=== PATIENT | male | born 1965 | race Caucasian/White ===

== ENCOUNTER 2018-11-05 20:12 | Observation (INO) ==
[2018-11-05] MEDS ORDERED: Isovue-370 500 ML BOTTLE IVP ONE (20:47)
[2018-11-05 20:50] LABS: Mean Corpuscular Volume 93.9 fL (83.0-100.0)
[2018-11-05 20:51] LABS: Basophils % 0.8 %; Eosinophils # 0.1 K/mcL (0.0-0.6); Hematocrit 38.8 % (37.5-50.1); Hemoglobin 12.7 g/dL (12.9-16.9); Immature Granulocytes % 0.5 % (0-4); Immature Platelets 4.4 % (1.1-6.1); Lymphocytes # 1.6 K/mcL (0.6-4.6); Lymphocytes % 40.2 %; Mean Corpuscular HGB Conc 32.7 g/dL (31.6-35.5); Mean Corpuscular Hemoglobin 30.8 pg (28.0-33.3); Mean Platelet Volume 11.3 fL (9.4-12.4); Monocytes # 0.3 K/mcL (0.0-1.3); Monocytes % 6.9 %; Neutrophils # 1.9 K/mcL (1.6-8.9); Red Blood Count 4.13 M/mcL (4.19-5.50); Red Cell Distribution Width 14.6 % (11.5-14.5); Segmented Neutrophils % 49.6 %; White Blood Count 3.9 K/mcL (4.3-11.1)
[2018-11-05 20:58] LABS: Platelet Count 80 K/mcL (140-400)
[2018-11-05 21:14] LABS: BUN/Creatinine Ratio 19 (6-26); Blood Urea Nitrogen 20 mg/dL (6-20); Calcium 8.8 mg/dL (8.6-10.3); Carbon Dioxide 26 mEq/L (23-29); Chloride 107 mEq/L (98-107); Glucose 130 mg/dL (70-105); Osmolality,Calculated 294 (280-300); Sodium 140 mEq/L (136-145); Troponin I < 0.03 ng/mL (< 0.04); eGFR For African Americans > 60 (> 60); eGFR For Non-African Americans > 60 (> 60)
--- NOTE | 2018-11-05 23:14 | Emergency Department Note ---
Disposition Clinical Impression: Paresthesia of arm, Facial paresthesia, Back pain Disposition: Admitted As Inpatient Condition: Fair Referrals: Zachary Levine MD [Primary Care Provider] - Forms: ED Satisfaction Letter Time of Disposition: 23:36 General Adult HPI - General Chief complaint: ED Neuro Symptoms/Deficit Stated complaint: JORGE ARMS NUMB/FACIAL NUMBNESS/BACK Time Seen by Provider: 11/05/18 20:21 Source: patient Limitations: no limitations Nursing Notes Reviewed: Yes Vital Signs Reviewed: Yes - History of Present Illness HPI Narrative: Patient presented to the emergency department with chief complaint of discomfort/numbness across his chest with numbness into both of his arms. He had also been having some back pain along with this. The patient states that he had a little bit of a headache 2 days ago which seemingly has gone away but then since 10:00 yesterday while he was sitting on a couch he started have bilateral arm numbness sensation and facial numbness sensation he states it felt like he was wearing a mask over the center of his face and all felt numb with in the center of this mass. The patient states her was no unilateral symptoms he states he has had this intermittently now for the last 2 days and seemingly increasing in frequency he states that it seems to last anywhere from 40 minutes to a couple of hours and seems to go away he cannot associated with anything but states it is now present and he was having some pain in his back now he has chronic back pain in his lumbar spine but states that this discomfort was across the parascapular region he states he had this odd sensation, and between his shoulder blades that he cannot describe. He denies actual chest pain he denies palpitations he denies shortness of breath he states however that he has felt very fatigued which is unusual for him. He has had no energy. He states currently does not have a headache he has had no speech difficulty no vision changes. He states that the entire center of his face feels numb. There is no unilateral symptoms at all. He states that he has some chronic low back pain which is unchanged no leg numbness or weakness no bowel or bladder incontinence no fevers no chills no urinary changes. He states that this has been present more throughout the day and the central face numbness and bilateral arm numbness has seemingly worse and he states that he does not really feel weak and was able to move his arms, states it is more of a numbness sensation that it is a true weakness but states that he globally felt like he had less energy than usual. He is a diabetic has a history of hypertension no history of coronary artery disease or stroke. Pain Scale: 0 - Related Data Home Medications Medication Instructions Recorded Confirmed Furosemide [Lasix] 20 mg PO DAILY PRN 01/24/17 11/05/18 Losartan Potassium [Cozaar] 50 mg PO DAILY 01/24/17 11/05/18 Metformin HCl [Glucophage] 1,000 mg PO BID 01/24/17 11/05/18 Potassium Chloride 20 meq PO DAILY PRN 01/24/17 11/05/18 Pravastatin Sodium [Pravachol] 20 mg PO HS 01/24/17 11/05/18 Insulin Glargine,Hum.rec.anlog 66 unit SQ QAM 05/02/18 11/05/18 [Basaglar Kwikpen U-100] Dulaglutide [Trulicity] 1.5 mg SQ SA 11/05/18 11/05/18 Gabapentin [Neurontin] 300 mg PO TID PRN 11/05/18 11/05/18 Glimepiride [Amaryl] 4 mg PO BID 11/05/18 11/05/18 Pioglitazone [Actos] 45 mg PO DAILY 11/05/18 11/05/18 Allergies Allergy/AdvReac Type Severity Reaction Status Date / Time canagliflozin [From Invokana] Allergy Back Pain Verified 11/05/18 20:27 All systems ED: reviewed and negative except as stated. Review of Systems: As Per HPI Past Medical History - Past Medical History Medical history: Reports: diabetes, hyperlipidemia, hypertension Surgical history: Reports: other Psychiatric history: Reports: no psych history - Social History Smoking Status: Never smoker Smokeless Tobacco Status: Yes Alcohol use: Reports: occasionally Drug use: Reports: none Physical Exam - General Limitations: no limitations General appearance: alert - Head Head exam: atraumatic, normocephalic - Eye Eye exam: Present: normal appearance, PERRL - ENT ENT exam: normal exam, normal oropharynx - Neck Neck exam: Present: normal inspection, full ROM. Absent: thyromegaly - Chest Chest inspection: Present: normal inspection, symmetric chest wall rise - Respiratory Respiratory exam: Present: normal lung sounds bilaterally. Absent: respiratory distress - Cardiovascular Cardiovascular exam: Present: regular rate, normal rhythm - Abdominal Exam Abdominal exam: Present: soft, Non-Tender, other (Abdomen is obese, no obvious palpable or pulsatile mass no tenderness no obvious organomegaly.) - Extremities Exam Extremities exam: Present: normal inspection, full ROM, normal capillary refill, pedal edema (There is trace to 1+ bilateral lower extremity edema no unilateral swelling palpable cord calf tenderness Homans sign or clinical evidence of DVT). Absent: tenderness - Expanded Lower Extremity Exam Neurovascular/Tendon exam: Present: normal capillary refill. Absent: pulse deficit - Back Exam Back exam: Present: normal inspection, full ROM. Absent: tenderness, CVA tenderness (R), CVA tenderness (L) - Neurological Exam Neurological exam: Present: alert, oriented X3, CN II-XII intact, reflexes normal, other (No pass pointing no pronator drift normal speech normal pupils no focal neurologic findings.). Absent: motor sensory deficit - Psychiatric Psychiatric exam: Present: normal affect - Skin Skin exam: Present: warm, dry, intact, normal color. Absent: rash Course Vital Signs Temperature 98.2 F 11/05/18 20:17 Pulse Rate 76 11/05/18 20:17 Respiratory Rate 24 11/05/18 20:17 Blood Pressure 160/79 11/05/18 20:17 O2 Sat by Pulse Oximetry 100 11/05/18 20:17 Temperature 98.2 F 11/05/18 20:17 Pulse Rate 86 11/05/18 23:01 Respiratory Rate 20 11/05/18 23:01 Blood Pressure 144/76 11/05/18 23:01 O2 Sat by Pulse Oximetry 97 11/05/18 23:01 Oxygen Delivery Oxygen Delivery Room Air Medical Decision Making - [facility] Narrative Medical decision making narrative: Patient had an IV placed, was placed on the monitor. Head CT showed no acute findings. Cervical spine CT and thoracic spine CTs were ordered as the patient reports that he has history of chronic low back problems with disc disease, and has had radicular symptoms with that previously and was wondering if this was related that he did have some back pain with symptoms in the both of his arms, therefore imaging was ordered, CT of the cervical and thoracic spine showed no evidence of significant abnormality, some mild degenerative changes of a herniated discs or other findings as interpreted by radiology secondary to his pain into his back with pain across his shoulder blades and numbness into his arms, a CT dissection protocol was also ordered to rule out vascular cause of his symptoms. CT dissection protocol showed no acute findings as interpreted by radiology. EKG was normal sinus rhythm with no evidence of acute ischemic dysrhythmia or hyperkalemia as interpreted by myself. CBC basic metabolic profile cardiac enzymes magnesium were all within acceptable limits apart from a slightly low platelet count 80,000. Is unclear as to the exact etiology of this patient's symptoms however he is morbidly obese has a history of hypertension diabetes, with arm tingling and facial tingling, and discomfort in his back this could represent a cardiac equivalent, does not seem to fit any stroke pathology or pattern, with a normal head CT, has no actual focal neurologic findings, and am still concerned about a potential cardiac equivalent and patient was admitted to the hospital for further evaluation and management. - Lab Data Result diagrams: 11/05/18 20:30 11/05/18 20:30 Lab Results 11/05/18 11/05/18 Range/Units 20:30 20:30 WBC 3.9 L (4.3-11.1) K/mcL RBC 4.13 L (4.19-5.50) M/mcL Hgb 12.7 L (12.9-16.9) g/dL Hct 38.8 (37.5-50.1) % MCV 93.9 (83.0-100.0) fL MCH 30.8 (28.0-33.3) pg MCHC 32.7 (31.6-35.5) g/dL RDW 14.6 H (11.5-14.5) % Plt Count 80 L (140-400) K/mcL MPV 11.3 (9.4-12.4) fL Immature Gran % 0.5 (0-4) % Seg Neutrophils % 49.6 % Lymphocytes % 40.2 % Monocytes % 6.9 % Eosinophils % 2.0 % Basophils % 0.8 % Neutrophils # 1.9 (1.6-8.9) K/mcL Lymphocytes # 1.6 (0.6-4.6) K/mcL Monocytes # 0.3 (0.0-1.3) K/mcL Eosinophils # 0.1 (0.0-0.6) K/mcL Basophils # 0.0 (0.0-0.2) K/mcL Immature Plt Fraction 4.4 (1.1-6.1) % Sodium 140 (136-145) mEq/L Potassium 4.0 (3.5-5.1) mEq/L Chloride 107 (98-107) mEq/L Carbon Dioxide 26 (23-29) mEq/L BUN 20 (6-20) mg/dL Creatinine 1.07 (0.70-1.30) mg/dL Est GFR ( Amer) > 60 (> 60) Est GFR (Non-Af Amer) > 60 (> 60) BUN/Creatinine Ratio 19 (6-26) Glucose 130 H (70-105) mg/dL Calculated Osmolality 294 (280-300) Calcium 8.8 (8.6-10.3) mg/dL Magnesium 2.0 (1.6-2.6) mg/dL Troponin I < 0.03 (< 0.04) ng/mL
[2018-11-05] MEDS ORDERED: *HR* HYDROcodone/Acet 5/325 mg TABLET PO ONE (23:30)
[2018-11-05] MEDS ORDERED: Aspirin 325 MG TABLET PO ONE (23:37)
[2018-11-06] MEDS ORDERED: Naloxone 0.4 MG/ML INJ IVP PRN (01:19)
--- NOTE | 2018-11-06 01:19 | Internal Med History&Physical ---
<Judson Paniagua - Last Filed: 11/06/18 07:40> Date of Encounter: 11/06/18 Time of Encounter: 00:17 Internal Medicine - H&P: HPI History of present illness: Mr. Molina is a 53 year old male with a PMH of DM, HLD, and HTN who presented to [facility] ED on 11/05/18 with chief complaint of chest discomfort/numbness across his chest with numbness going into both arms. He reported associated back pain. Also described associated facial numbness that he described as "wearing a tight mask over the center of his face," and he felt numb in the center of this area. Denied any unilateral symptoms. On arrival, vital signs were significant for an elevated respiratory rate of 24, BP 160/79. All other vitals were WNL. Labs showed a low white count 3.9, hemoglobin 12.7, and glucose 130. CT scan of the head and neck was unremarkable. CT dissection was performed, which showed cirrhosis with portal hypertension, small volume ascites, and mesenteric edema in the abdomen and pelvis. CT scan of the thoracic spine showed mild, multilevel degenerative changes in the mid and lower thoracic spine. He was given a one-time loading dose of ASA, 325. During my assessment, patient's symptoms had completely resolved. He denied having any numbness, tingling, chest tightness, or chest numbness when I saw him. He also denied headache, visual disturbances, weakness, difficulty speaking, or lightheadedness. On neurologic exam, patient has 5/5 strength in all 4 extremities. His range of motion appears intact, although he has some difficulty lifting his hands above his head due to chronic shoulder issues. Patellar and brachioradialis reflexes are 2/4 bilaterally. He states that the symptoms have never happened to him before. He says that they were associated with a unilateral headache on the right side of his head and face. He denies a history of migraines. He does have a history of diabetes, and takes gabapentin. He denies having any chronic numbness or tingling. Will order TSH, vitamin B12, folate, and thiamine levels, we will trend troponin levels 2, and will consult neurology for further recommendations. Medical history: DM, HLD, and HTN Family History: CAD Past Med Surg Social Fam HX - Past Medical History Medical history: diabetes, hyperlipidemia, hypertension Additional medical history: obese,headaches,neuropathy,varicosities in leg,sciatica,carpal tunnel, DDD, LIVER PROBLEMS., Psychiatric history: no psych history - Past Surgical History Surgical History: other Additional surgical history: pilonidal cyst excision - Social History Smoking Status: Never smoker Smokeless Tobacco Status: Yes Alcohol use: occasionally Drug use: none - Family History Mother Living Status: Age at : 52 Cause of : heart failure Hx Family Cardiac Disorders: Yes Father Living Status: Age at : 56 Cause of : [place] Hx Family Cardiac Disorders: Yes Internal Medicine - H&P: Meds Furosemide [Lasix] 20 mg PO DAILY PRN 01/24/17 [History] Losartan Potassium [Cozaar] 50 mg PO DAILY 01/24/17 [History] Metformin HCl [Glucophage] 1,000 mg PO BID 01/24/17 [History] Potassium Chloride 20 meq PO DAILY PRN 01/24/17 [History] Pravastatin Sodium [Pravachol] 20 mg PO HS 01/24/17 [History] Insulin Glargine,Hum.rec.anlog [Basaglar Kwikpen U-100] 66 unit SQ QAM 05/02/18 [History] Dulaglutide [Trulicity] 1.5 mg SQ SA 11/05/18 [History] Gabapentin [Neurontin] 300 mg PO TID PRN 11/05/18 [History] Glimepiride [Amaryl] 4 mg PO BID 11/05/18 [History] Pioglitazone [Actos] 45 mg PO DAILY 11/05/18 [History] Aspirin Enteric Coated [Aspirin EC] 81 mg PO DAILY #30 tablet. 11/06/18 [Rx] Allergy/AdvReac Type Severity Reaction Status Date / Time canagliflozin [From Invokana] Allergy Back Pain Verified 11/05/18 20:27 All Systems PM: A 10-system review of systems was performed and is negative for pertinent findings except as documented above in the HPI. - Constitutional Constitutional: no weakness - EENT Eyes: no change in vision, no loss of vision - Cardiovascular Cardiovascular ROS IM: no chest pain - Musculoskeletal Musculoskeletal ROS IM: numbness, tingling - Constitutional Vitals: Temp Pulse Resp BP Pulse Ox 97.5 F L 66 16 166/87 98 11/06/18 00:30 11/06/18 00:30 11/06/18 00:30 11/06/18 00:30 11/06/18 00:30 Exam: General: Conversant, no acute distress Head: atraumatic, normocephalic Eye: PERRL, EOMI, conjuntiva pink, sclera anicteric Neck: Supple, trachea midline; No lymphadenopathy Respiratory: CTAB. No accessory muscle use, wheezes, rales, or rhonchi Cardiovascular: RRR, +S1, +S2; no murmurs, rubs, gallops Abdomen: Soft, nontender Extremities: +1 pitting edema extending to 1 inch below the knees bilaterally Neurological: CN II-XII intact; 2/4 reflexes (patellar, brachioradialis); strength 5/5 in upper and lower extremities Psychiatric: Normal affect, normal mood Skin: Dry, intact Internal Med - H&P Results - Labs CBC & Chem 7: 11/06/18 05:27 11/06/18 05:27 Labs: Short CBC 11/05/18 Range/Units 20:30 WBC 3.9 L (4.3-11.1) K/mcL Hgb 12.7 L (12.9-16.9) g/dL Hct 38.8 (37.5-50.1) % Plt Count 80 L (140-400) K/mcL Neutrophils # 1.9 (1.6-8.9) K/mcL BMP 11/05/18 20:30 Sodium 140 Potassium 4.0 Chloride 107 Carbon Dioxide 26 BUN 20 Creatinine 1.07 Glucose 130 H Calcium 8.8 Cardiac Enzymes 11/05/18 Range/Units 20:30 Troponin I < 0.03 (< 0.04) ng/mL - Impressions ITS Impressions Cervical Spine CT 11/05/18 20:39 IMPRESSION: No acute abnormality of the cervical spine. D/ / Jose Wheatley / Jose Wheatley Interpreting Provider: Jose Wheatley Head CT 11/05/18 20:39 IMPRESSION: No acute intracranial abnormality. D/ / Jose Wheatley / Jose Wheatley Interpreting Provider: Jose Wheatley Dissection 11/05/18 20:47 IMPRESSION: No evidence of thoracic or abdominal aortic dissection. No acute abnormality detected within the chest. Cirrhosis with portal hypertension. Small volume ascites and mesenteric edema noted within the abdomen and pelvis. D/ / Alexi Dang MD / Alexi Dang MD Interpreting Provider: Alexi Dang MD Thoracic Spine CT 11/05/18 20:47 IMPRESSION: Mild multilevel degenerative changes in the mid and lower thoracic spine. No bony canal or neural foraminal stenosis. No acute osseous abnormality. D/ / Shahrzad Early MD / Shahrzad Early MD Interpreting Provider: Shahrzad Early MD - Assessment and Plan (1) Chest discomfort Status: Acute Assessment and plan: Assessment - Initially presented complaining of chest discomfort/numbness going across into both arms - Denied associated pain, diaphoresis, palpitations, nausea, or vomiting; no prior episodes - EKG on arrival was unremarkable; initial troponin was negative - During my exam, patient had +1 edema in the lower extremities bilaterally; states that it has been many years since he got an echocardiogram - He says he does not believe he has CHF, but he does take lasix at home, which he says he only takes intermittently - No previous ischemic workup is on file Plan - Will continue to trend troponin 2 - Will order echocardiogram to r/o worsening systolic dysfunction - If patient has rising troponins or continued chest discomfort, cardiology consult may be warranted for inpatient stress testing (2) Paresthesia of arm Status: Acute Assessment and plan: Assessment - Initially presented with numbness across chest going down into both arms, as well as an area across his face that he described as "wearing a tight mask" - He denied any unilateral symptoms or focal weakness; patient has 5 out of 5 strength testing in all 4 extremities and 2/4 reflexes bilaterally on physical e xam - Etiology is unknown at this time; per review of outpatient records, patient does have a history of diabetic neuropathy - He also has a documented history of spinal stenosis and degenerative disc disease - Suspicion for CVA is low at this time; no focal deficits are noted, no facial drooping, no slurred speech, cranial nerves II-XII intact - CT scan of the head, neck, chest, and thoracic spine were all unremarkable Plan - Will obtain TSH to rule out hypothyroidism - Will order thiamine, vitamin B12, folate levels to rule out deficiency - We will consult neurology for further recommendations (3) Leukopenia Status: Acute Assessment and plan: - Labs demonstrated a low white count at 3.9 - Etiology is unknown at this time - Patient appears nontoxic; no infection source is suspected at this time - Repeat a.m. labs Qualifiers: Qualified Code(s): D72.819 - Decreased white blood cell count, unspecified (4) Hyperlipidemia Status: Acute Assessment and plan: - Continue statin Qualifiers: Qualified Code(s): E78.5 - Hyperlipidemia, unspecified (5) Hypertension Status: Acute Assessment and plan: - Continue home medications Qualifiers: Qualified Code(s): I10 - Essential (primary) hypertension (6) Diabetes Status: Acute Assessment and plan: - SSI Qualifiers: Qualified Code(s): E11.9 - Type 2 diabetes mellitus without complications (7) DVT prophylaxis Status: Acute Assessment and plan: - Heparin SQ - Time Spent With Patient Total time spent is greater than 50% in coordination of care (as documented) at patient's floor/unit and/or counseling patient: <Gabrielle Manuel Z - Last Filed: 11/07/18 16:16> Date of Encounter: 11/06/18 Internal Medicine - H&P: HPI History of present illness: Mr. Molina is a 53 year old male All Systems PM: A 10-system review of systems was performed and is negative for pertinent findings except as documented above in the HPI. - Constitutional Vitals: Temp Pulse Resp BP Pulse Ox 97.5 F L 55 16 154/87 99 11/06/18 08:16 11/06/18 08:16 11/06/18 08:16 11/06/18 08:16 11/06/18 08:16 Internal Med - H&P Results - Labs CBC & Chem 7: 11/06/18 05:27 11/06/18 05:27 - Impressions ITS Impressions Cervical Spine CT 11/05/18 20:39 IMPRESSION: No acute abnormality of the cervical spine. D/ / Jose Wheatley / Jose Wheatley Interpreting Provider: Jose Wheatley Head CT 11/05/18 20:39 IMPRESSION: No acute intracranial abnormality. D/ / Jose Wheatley / Jose Wheatley Interpreting Provider: Jose Wheatley Dissection 11/05/18 20:47 IMPRESSION: No evidence of thoracic or abdominal aortic dissection. No acute abnormality detected within the chest. Cirrhosis with portal hypertension. Small volume ascites and mesenteric edema noted within the abdomen and pelvis. D/ / Alexi Dang MD / Alexi Dang MD Interpreting Provider: Alexi Dang MD Thoracic Spine CT 11/05/18 20:47 IMPRESSION: Mild multilevel degenerative changes in the mid and lower thoracic spine. No bony canal or neural foraminal stenosis. No acute osseous abnormality. D/ / Shahrzad Early MD / Shahrzad Early MD Interpreting Provider: Shahrzad Early MD Echocardiogram 11/06/18 04:55 Impressions: LVEF 60-65%. Definity echo contrast was used. Normal left ventricular diastolic function. Normal right ventricular structure and function. Mild mitral regurgitation. Mild tricuspid regurgitation. Borderline pulmonary hypertension. Left Ventricular Wall Motion: Rest Echo Findings All wall segments showed normal motion. Findings: Study Quality * Technically sub-optimal due to body habitus. ECG Findings * Normal sinus rhythm. Left Ventricle * LVEF 60-65%. * Normal LV chamber size, wall thickness and function. * Definity echo contrast was used. * Normal left ventricular diastolic function. Right Ventricle * Normal right ventricular structure and function. Left Atrium * Normal left atrial size. Right Atrium * Normal right atrial size. Aortic Valve * No aortic regurgitation. * Aortic valve not well visualized. * No aortic stenosis. Mitral Valve * No mitral stenosis. * Mitral valve not well visualized. * Mild mitral regurgitation. Tricuspid Valve * Tricuspid valve not well visualized. * Mild tricuspid regurgitation. * Estimated RA pressure is 3 mmHg. * Estimated RVSP is 34 mmHg. * Borderline pulmonary hypertension. Pulmonic Valve * Pulmonic valve is not well visualized. * No pulmonic stenosis. * No pulmonic regurgitation. Pulmonary Artery * Pulmonary artery not well visualized. Aorta * Normally sized aortic root. Pericardium * There is no pericardial effusion present. Interatrial Septum * No evidence of PFO by color Doppler. IVC * The IVC is not dilated. - Assessment and Plan (1) Paresthesia of arm Status: Acute (2) Facial paresthesia Status: Acute (3) Back pain Status: Acute Qualifiers: Back pain location: back pain in unspecified location Chronicity: acute Back pain laterality: midline Qualified Code(s): M54.9 - Dorsalgia, unspecified (4) Hyperlipidemia Status: Acute Qualifiers: Qualified Code(s): E78.5 - Hyperlipidemia, unspecified (5) Hypertension Status: Acute Qualifiers: Hypertension type: essential hypertension Qualified Code(s): I10 - Essential (primary) hypertension (6) Diabetes Status: Acute Qualifiers: Diabetes mellitus type: type 2 Diabetes mellitus shelter insulin use: without buttermaker continuous churn use Diabetes mellitus complication status: without complication Qualified Code(s): E11.9 - Type 2 diabetes mellitus without complications - Time Spent With Patient Total time spent is greater than 50% in coordination of care (as documented) at patient's floor/unit and/or counseling patient: - Attending Attestation The patient was seen on 11/06 I performed a history and physical examination of the patient and discussed his management with the resident. I reviewed the residents note and agree with the documented findings and plan of care.
[2018-11-06] MEDS ORDERED: Furosemide 20 MG TABLET PO PRN (04:46)
[2018-11-06] MEDS ORDERED: Gabapentin 300 MG CAPSULE PO PRN (04:46)
[2018-11-06 05:52] LABS: Immature Granulocytes % 0.4 % (0-4); Mean Platelet Volume 10.9 fL (9.4-12.4); Red Cell Distribution Width 14.5 % (11.5-14.5)
[2018-11-06 05:54] LABS: Basophils % 0.6 %; Eosinophils # 0.1 K/mcL (0.0-0.6); Eosinophils % 2.6 %; Hematocrit 41.2 % (37.5-50.1); Hemoglobin 13.3 g/dL (12.9-16.9); Immature Platelets 4.8 % (1.1-6.1); Lymphocytes # 1.7 K/mcL (0.6-4.6); Lymphocytes % 33.1 %; Mean Corpuscular HGB Conc 32.3 g/dL (31.6-35.5); Mean Corpuscular Hemoglobin 30.4 pg (28.0-33.3); Mean Corpuscular Volume 94.3 fL (83.0-100.0); Monocytes # 0.4 K/mcL (0.0-1.3); Monocytes % 7.3 %; Neutrophils # 2.8 K/mcL (1.6-8.9); Red Blood Count 4.37 M/mcL (4.19-5.50)
[2018-11-06 05:57] LABS: Platelet Count 90 K/mcL (140-400)
[2018-11-06 06:14] LABS: BUN/Creatinine Ratio 22 (6-26); Blood Urea Nitrogen 20 mg/dL (6-20); Calcium 9.2 mg/dL (8.6-10.3); Carbon Dioxide 26 mEq/L (23-29); Chloride 106 mEq/L (98-107); Glucose 74 mg/dL (70-105); Osmolality,Calculated 291 (280-300); Potassium 4.6 mEq/L (3.5-5.1); Sodium 140 mEq/L (136-145); eGFR For African Americans > 60 (> 60); eGFR For Non-African Americans > 60 (> 60)
[2018-11-06 06:31] LABS: Folate 17.7 ng/mL (3.0-16.0)
[2018-11-06] MEDS ORDERED: D5% in Water 1,000 ML IVC PRN (07:35)
[2018-11-06] MEDS ORDERED: *HR* Dextrose 50 % in Water (Syg) 50 ML SYRINGE IVP PRN (07:35)
[2018-11-06] MEDS ORDERED: Dextrose Gel 15 GM/37.5 ML TUBE PO PRN ×2 (07:35)
[2018-11-06 08:18] VITALS: BP 154/87
--- NOTE | 2018-11-06 09:10 | Neurology - Consult Note ---
Date of Encounter: 11/06/18 Time of Encounter: 09:06 Assessment and Plan (1) Paresthesia of arm Status: Acute Neurology has been consulted for evaluation of facial and bilateral arm paresthesias Symptoms were precipitated by a headache after working outside in the heat all day Monday The patient reports first developing paresthesias in the right arm radiating to the right shoulder then radiation to the left shoulder and left arm as well as some mild mid chest discomfort At the time of my assessment this morning the paresthesias persists in the left forearm and left hand. Neurologically there are no focal motor findings and the patient appears to be neurologically intact Given that his sx are bilateral I do not believe his sx to be of a central neurological origin. 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 Molina is a 53 year old male with a PMH of DM, HLD and HTN who presents to [facility] ED with a CC of chest discomfort and paresthesias which he reports he began his right arm and radiated to right shoulder mid chest to left shoulder and down his left arm. 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 Also of note the patient does have a history significant for mild cervical stenosis and degenerative disc disease in the thoracic spine. This time of my assessment the patient reports that his symptoms have resolved except for some mild numbness and tingling in the left forearm and left hand. He denies any further neurological deficits. A CT dissection was performed which showed cirrhosis with portal hypertension and small volume ascites and mesenteric edema in the abdomen and pelvis but otherwise no acute findings. CT of the head was unremarkable. A CT of the cervical spine did not reveal any acute pathology. Again, CT of thoracic spine showed mild multilevel degenerative changes in the mid and lower thoracic spine. B12 and folate were within normal limits. TSH was mildly high at 6.6. Past Med Surg Social Fam HX - Past Medical History Medical history: diabetes, hyperlipidemia, hypertension Additional medical history: obese,headaches,neuropathy,varicosities in leg,sciatica,carpal tunnel, DDD, LIVER PROBLEMS., Psychiatric history: no psych history - Past Surgical History Surgical History: other Additional surgical history: pilonidal cyst excision - Social History Smoking Status: Never smoker Smokeless Tobacco Status: Yes Alcohol use: occasionally Drug use: none - Family History Mother Living Status: Age at : 52 Cause of : heart failure Hx Family Cardiac Disorders: Yes Father Living Status: Age at : 56 Cause of : MA Hx Family Cardiac Disorders: Yes Medications and Allergies Furosemide [Lasix] 20 mg PO DAILY PRN 01/24/17 [History] Losartan Potassium [Cozaar] 50 mg PO DAILY 01/24/17 [History] Metformin HCl [Glucophage] 1,000 mg PO BID 01/24/17 [History] Potassium Chloride 20 meq PO DAILY PRN 01/24/17 [History] Pravastatin Sodium [Pravachol] 20 mg PO HS 01/24/17 [History] Insulin Glargine,Hum.rec.anlog [Basaglar Kwikpen U-100] 66 unit SQ QAM 05/02/18 [History] Dulaglutide [Trulicity] 1.5 mg SQ SA 11/05/18 [History] Gabapentin [Neurontin] 300 mg PO TID PRN 11/05/18 [History] Glimepiride [Amaryl] 4 mg PO BID 11/05/18 [History] Pioglitazone [Actos] 45 mg PO DAILY 11/05/18 [History] Aspirin Enteric Coated [Aspirin EC] 81 mg PO DAILY #30 tablet. 11/06/18 [Rx] Allergy/AdvReac Type Severity Reaction Status Date / Time canagliflozin [From Invokana] Allergy Back Pain Verified 11/05/18 20:27 All Systems: The remainder of the systems were reviewed and are negative Review of Systems: REVIEW OF SYSTEMS GENERAL: Negative for any nausea, vomiting, fevers, chills NEUROLOGIC: Negative for any blurry vision, blind spots, double vision, facial asymmetry, dysphagia, dysarthria, unilateral weakness POSITIVE-B/L ARM PARASTHESIAS WITH RADIATION TO B/L SHOULDERS AND MID CHEST. ALSO REPORTING A HEADACHE HEENT: Negative for any head trauma, neck trauma, neck stiffness, photophobia, p honophobia CARDIAC: Negative for any chest pain, dyspnea MUSCULOSKELETAL: Intermittent loss of strength in b/l arms Physical Examination - Vital Signs Vital Signs: Initial Vital Signs Temp Pulse Resp BP Pulse Ox 98.2 F 76 24 160/79 100 11/05/18 20:17 11/05/18 20:17 11/05/18 20:17 11/05/18 20:17 11/05/18 20:17 - Exam Exam: Examination: General Examination: *CONSTITUTIONAL: Alert and oriented x3, no acute distress *GENERAL APPEARANCE OF PATIENT appears healthy and well groomed *EYES: pupils equal, round, reactive to light and accommodation, conjunctiva clear without masses or ulcerations, fundi normal. *CARDIOVASCULAR: RRR, no peripheral edema, distal temperature normal, dorsalis pedis pulses normal. Refer to vital signs * MUSCULOSKELETAL: *GAIT AND STATION: normal, with normal Romberg testing, no abnormalities such as broad base gait or spasticity *ASSESSMENT OF MUSCLE STRENGTH IN THE UPPER AND LOWER EXTREMITIES bilateral deltoid, bicep, tricep, car shagger strength, hip flexors ,anterior tibialis, dorsoflexion of the foot 5/5 *MUSCLE TONE IN THE UPPER AND LOWER EXTREMITIES normal. No abnormal movements, fasciculations or atrophy identified. Neurological: *ORIENTATION to person, situation, time and place *LANGUAGE AND FUNCTION no significant aphasia or dysarthia was noted. *ATTENTION AND CONCENTRATION are normal *LANGUAGE FUNCTION no significant aphasia or dysarthia was noted. *FUND OF KNOWLEDGE aware of current events, past history, vocabulary *MENTAL attention span and concentration normal. *CN II optic fundi were normal, no papilledema noted. *CN III,IV, PERRLA extraocular eye movements were full, no nystagmus and no ptosis noted. *CN V shows normal sensation and jaw opens symmetrically. *CN VII shows normal facial movement symmetrically, upper and lower bilaterally. *CN VIII shows no significant hearing loss on exam *CN IX-X palate elevated symmetrically *CN XI normal strength in the sternocleidomastoid muscles, symmetrical shoulder shrugging. *CN XII tongue protruded in the midline, with normal strength and movement. *SENSORY EXAMINATION light touch intact *REFLEXES: deep tendon reflexes were normal and symmetrical , grade 2/4 diffusely, no pathological reflexes were noted. *CEREBELLAR TESTING normal finger to nose, heel/knee/mendenhall *PAIN LEVEL 2/10 chronic lumbar spine pain and sciatica with pain radiating to the left leg Results - Laboratory Findings CBC and BMP: 11/06/18 05:27 11/06/18 05:27 Abnormal lab findings: Abnormal lab results WBC 3.9 K/mcL (4.3-11.1) L 11/05/18 20:30 RBC 4.13 M/mcL (4.19-5.50) L 11/05/18 20:30 Hgb 12.7 g/dL (12.9-16.9) L 11/05/18 20:30 RDW 14.6 % (11.5-14.5) H 11/05/18 20:30 Plt Count 90 K/mcL (140-400) L 11/06/18 05:27 Glucose 130 mg/dL (70-105) H 11/05/18 20:30 POC Glucose 153 mg/dL (70-99) H 11/05/18 20:17 Folate 17.7 ng/mL (3.0-16.0) H 11/06/18 05:27 TSH 6.606 mcIU/mL (0.340-5.600) H 11/06/18 05:27 - Diagnostic Findings Additional findings: CT/CT head/brain wo con IMPRESSION: No acute intracranial abnormality. CT/CT cervical spine wo con IMPRESSION: No acute abnormality of the cervical spine. CT/CT thoracic spine wo con IMPRESSION: Mild multilevel degenerative changes in the mid and lower thoracic spine. No bony canal or neural foraminal stenosis. No acute osseous abnormality. CT/CT CTA Dissection Study IMPRESSION: No evidence of thoracic or abdominal aortic dissection. No acute abnormality detected within the chest. Cirrhosis with portal hypertension. Small volume ascites and mesenteric edema noted within the abdomen and pelvis. Consult Discharge Plan - Plan Additional Instructions: Follow-up appointments: If there is not an appointment listed below, please call your physician and schedule a follow-up appointment. If you have congestive heart failure and your symptoms return, make an appointment with your physician. Medication List: Carry an up to date list of medications you are taking at all time. We have given you an updated medication list including any new medications that you have been prescribed. Please provide that list to your primary provider Symptoms: If your condition changes or you experience any of the following symptoms, notify your physician immediately: Unusual or worsening pain, fever, persistent nausea and vomiting, bleeding, increase in swelling (especially in your legs), sudden weight gain, extreme dizziness, chest pain, increased drainage or redness from a wound or incision. Go to the emergency department if you experience a problem with breathing. Weights: If you have a history of swelling or shortness of breath, weigh yourself daily and notify your physician if you have a weight gain of two or more pounds in one day or 5 or more pounds in a week. If you experience any of the warning signs for stroke: Sudden numbness or weakness of the face, arm or leg; especially on one side of the body, sudden confusion, trouble speaking or understanding, sudden trouble seeing in one or both eyes, sudden trouble walking, dizziness, loss of balance or coordination, sudden sever headache with no cause; Call 911 or go to the emergency room. Stroke is a medical emergency. Some risk factors for stroke: Age, cigarette smoking, diabetes, excessive alcohol consumption, family history, high blood pressure, overweight, physical inactivity, prior stroke, heart attack, diagnosis of carotid artery stenosis or other artery disease. If you smoke, STOP: Smoking or tobacco use significantly increases your risk of heart and lung disease. Your chance of disease greatly increases if you continue to smoke. For more information, call the [place] tobacco quit line for smoking cessation 8-338-BGFY-NOW ( ) Referrals: Gurvinder Villeda Jr, MD [Partnered Physician] - (This appointment was web requested. They will monse you with appointment info. ) Zachary Levine MD [Primary Care Provider] - (Please make a follow up appo intment in 1-2 weeks. ) Prescriptions: Aspirin Enteric Coated [Aspirin EC] 81 mg PO DAILY #30 tablet.
[2018-11-06] MEDS ORDERED: Perflutren Lipid Microsphere 1.3 ML in 0.9 % Sodium Chloride 8.7 ML IVP ONE (10:00)
[2018-11-06] MEDS ORDERED: Perflutren Lipid Microsphere 2 ML VIAL ONE (10:02)
--- NOTE | 2018-11-06 10:43 | Electrocardiograph Report ---
[place] [id number] Test Date: 2018-11-05 Pat Name: Pablo Molina Department: [id number] Room: 3B38 Gender: Pastoral Assistant: : [id number] Requested By: Colton Saha Order Number: [id number] Reading MD: Varun Ruth Measurements Intervals Scott Rate: 75 P: -20 IN: 160 QRS: 55 QRSD: 86 T: 51 QT: 389 QTc: 435 Interpretive Statements Sinus rhythm Abnormal R-wave progression, early transition Possible inferior infarct, old Electronically Signed On 11-06-2018 10:41:23 EDT by Varun Ruth
--- NOTE | 2018-11-06 11:46 | Discharge Summary ---
- NOTES TO OUTPATIENT PROVIDER Notes to Outpatient Provider: f/u with PCP in one week. f/u with Spine surgery Dr. Villeda in one week. Orders not resulted at time of discharge: Pending orders 11/06/18 05:27 Vitamin B1 (Thiamine) Whole Bl Routine Date of Encounter: 11/06/18 Time of Encounter: 11:46 - Discharge Diagnosis (1) Paresthesia of arm Priority: Primary Status: Acute (2) Back pain Priority: Primary Status: Acute Qualifiers: Back pain location: back pain in unspecified location Chronicity: acute Back pain laterality: midline Qualified Code(s): M54.9 - Dorsalgia, unspecified (3) Facial paresthesia Priority: Primary Status: Acute (4) Hyperlipidemia Priority: Secondary Status: Acute Qualifiers: Qualified Code(s): E78.5 - Hyperlipidemia, unspecified (5) Hypertension Priority: Secondary Status: Acute Qualifiers: Hypertension type: essential hypertension Qualified Code(s): I10 - Essential (primary) hypertension (6) Diabetes Priority: Secondary Status: Acute Qualifiers: Diabetes mellitus type: type 2 Diabetes mellitus supervisor intermediates insulin use: without supervisor intermediates use Diabetes mellitus complication status: without complication Qualified Code(s): E11.9 - Type 2 diabetes mellitus without complications Hospital course: Mr. Molina is a 53 year old male with a PMH of DM, HLD, DJD, Spinal stenosis, low back pain and HTN pt presented to [facility] ED on 11/05/18 with chief complaint of facial numbness over frontal head and scalp, cap like 2 days ago.. Y/d he did have numbness across his his both shoulders and radiating to both arms. CT scan of the head and neck was unremarkable. CT dissection was performed, which showed cirrhosis with portal hypertension, small volume ascites, and mesenteric edema in the abdomen and pelvis. CT scan of the thoracic spine showed mild, multilevel degenerative changes in the mid and lower thoracic spine. He was admitted in the hospital and placed him on president/gm production & live experiences. Patient stated his symptoms resolved today. 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 I offered him to have MRI of Cervical spine done here, how ever pt refused to stay and wanted to go home and f.u with PCP Dr. Levine as an out pt. I did make a referral to f/u with Spine surgery Dr. Villeda as an out pt. He did have slightly elevated TSH @ 6.6 and Folate @ 17.7. Recommend out pt f/u with PCP and repeat labs in 3-4 weeks again. - Time Spent with Patient Total time spent providing and/or coordinating discharge services: - Discharge Medications Prescriptions: New Aspirin Enteric Coated [Aspirin EC] 81 mg PO DAILY #30 tablet.dr Continued Furosemide [Lasix] 20 mg PO DAILY PRN PRN Reason: Edema Losartan Potassium [Cozaar] 50 mg PO DAILY Metformin HCl [Glucophage] 1,000 mg PO BID Potassium Chloride 20 meq PO DAILY PRN PRN Reason: WITH LASIX Pravastatin Sodium [Pravachol] 20 mg PO HS Insulin Glargine,Hum.rec.anlog [Basaglar Kwikpen U-100] 66 unit SQ QAM Glimepiride [Amaryl] 4 mg PO BID Dulaglutide [Trulicity] 1.5 mg SQ SA Gabapentin [Neurontin] 300 mg PO TID PRN PRN Reason: Nerve Pain Pioglitazone [Actos] 45 mg PO DAILY Home Medications: Furosemide [Lasix] 20 mg PO DAILY PRN 01/24/17 [History] Losartan Potassium [Cozaar] 50 mg PO DAILY 01/24/17 [History] Metformin HCl [Glucophage] 1,000 mg PO BID 01/24/17 [History] Potassium Chloride 20 meq PO DAILY PRN 01/24/17 [History] Pravastatin Sodium [Pravachol] 20 mg PO HS 01/24/17 [History] Insulin Glargine,Hum.rec.anlog [Basaglar Kwikpen U-100] 66 unit SQ QAM 05/02/18 [History] Dulaglutide [Trulicity] 1.5 mg SQ SA 11/05/18 [History] Gabapentin [Neurontin] 300 mg PO TID PRN 11/05/18 [History] Glimepiride [Amaryl] 4 mg PO BID 11/05/18 [History] Pioglitazone [Actos] 45 mg PO DAILY 11/05/18 [History] Aspirin Enteric Coated [Aspirin EC] 81 mg PO DAILY #30 tablet. 11/06/18 [Rx] Allergies/Adverse Reactions: Allergy/AdvReac Type Severity Reaction Status Date / Time canagliflozin [From Invokana] Allergy Back Pain Verified 11/05/18 20:27 Date of admission: 11/05/18 23:36 Primary care physician: Zachary Levine MD Consults: 11/06/18 04:47 Consult to Neurology [CONS] Routine Consulting Provider: Neurology [facility] Reason for Consult: intermittent upper extremity numbness and tingling Call Completed: No - Constitutional Vitals: Temp Pulse Resp BP Pulse Ox 97.5 F L 55 16 154/87 99 11/06/18 08:16 11/06/18 08:16 11/06/18 08:16 11/06/18 08:16 11/06/18 08:16 General appearance: Present: cooperative, A&O X 3, no acute distress, answers questions appropriately Exam: Gen: Alert, awake, Oriented to time,place and person Chest: Diminished breath sounds B/L, No wheezing, No crackles, No rales Heart: S1S2+ RRR No murmurs Abd: Soft, NT, BS +, No organomegaly Ext: No edema, pulses are palpable, No calf tenderness Neuro : No acute focal neuro deficits noticed. No motor sensory deficit noticed Skin: No rash. - Patient Status Disposition: Home, Self-Care Condition: Good Overall status at discharge: patient is back to baseline - Discharge Instructions Follow Up With: Gurvinder Villeda Jr, MD [Partnered Physician] - Zachary Levine MD [Primary Care Provider] - (Please make a follow up appointment in 1-2 weeks. ) Additional Instructions: Follow-up appointments: If there is not an appointment listed below, please call your physician and schedule a follow-up appointment. If you have congestive heart failure and your symptoms return, make an appointment with your physician. Medication List: Carry an up to date list of medications you are taking at all time. We have given you an updated medication list including any new medications that you have been prescribed. Please provide that list to your primary provider Symptoms: If your condition changes or you experience any of the following symptoms, notify your physician immediately: Unusual or worsening pain, fever, persistent nausea and vomiting, bleeding, increase in swelling (especially in your legs), sudden weight gain, extreme dizziness, chest pain, increased drainage or redness from a wound or incision. Go to the emergency department if you experience a problem with breathing. Weights: If you have a history of swelling or shortness of breath, weigh yourself daily and notify your physician if you have a weight gain of two or more pounds in one day or 5 or more pounds in a week. If you experience any of the warning signs for stroke: Sudden numbness or weakness of the face, arm or leg; especially on one side of the body, sudden confusion, trouble speaking or understanding, sudden trouble seeing in one or both eyes, sudden trouble walking, dizziness, loss of balance or coordination, sudden sever headache with no cause; Call 911 or go to the emergency room. Stroke is a medical emergency. Some risk factors for stroke: Age, cigarette smoking, diabetes, excessive alcohol consumption, family history, high blood pressure, overweight, physical inactivity, prior stroke, heart attack, diagnosis of carotid artery stenosis or other artery disease. If you smoke, STOP: Smoking or tobacco use significantly increases your risk of heart and lung disease. Your chance of disease greatly increases if you continue to smoke. For more information, call the [place] tobacco quit line for smoking cessation 4-475-UUFS-NOW ( ) - Diet and Activity Activity: increase activity as tolerated Diet: low salt diet
[2018-11-06] MEDS ORDERED: Insulin LISPRO 300 UNITS/3 ML VIAL SQ SCH (12:00)
[2018-11-06] MEDS ORDERED: *HR* Heparin 5,000 UNIT/ML VIAL SQ SCH (18:00)
== END 2018-11-06 11:54 | disposition home or self-care (01) ==
LOC: EMEROOARM 20:12 → 3BNU 20:12
PROVIDERS: ADMIT Internal Medicine Nephrology; ATTEND Internal Medicine Nephrology

== ENCOUNTER 2021-06-23 07:50 | Inpatient (IN) ==
[2021-06-23 09:04] LABS: Basophils # 0.1 K/mcL (0.0-0.2); Basophils % 1.1 %; Eosinophils # 0.3 K/mcL (0.0-0.6); Hematocrit 36.6 % (37.5-50.1); Hemoglobin 12.2 g/dL (12.9-16.9); Immature Granulocytes % 0.6 % (0-4); Lymphocytes # 1.4 K/mcL (0.6-4.6); Lymphocytes % 20.6 %; Mean Corpuscular HGB Conc 33.3 g/dL (31.6-35.5); Mean Corpuscular Hemoglobin 32.6 pg (28.0-33.3); Mean Corpuscular Volume 97.9 fL (83.0-100.0); Mean Platelet Volume 12.2 fL (9.4-12.4); Monocytes # 0.6 K/mcL (0.0-1.3); Monocytes % 8.6 %; Neutrophils # 4.3 K/mcL (1.6-8.9); Platelet Count 106 K/mcL (140-400); Red Blood Count 3.74 M/mcL (4.19-5.50); Red Cell Distribution Width 14.1 % (11.5-14.5); Segmented Neutrophils % 64.1 %; White Blood Count 6.7 K/mcL (4.3-11.1)
[2021-06-23 09:26] LABS: Albumin 3.3 g/dL (3.5-5.7); Albumin/Globulin Ratio 1.3 (1.1-2.2); Bilirubin,Total 1.4 mg/dL (0.3-1.0); Calcium 9.3 mg/dL (8.6-10.3); Globulin 2.6 g/dL (2.4-3.5); Potassium 5.5 mEq/L (3.5-5.1); Total Protein 5.9 g/dL (6.4-8.9)
[2021-06-23] MEDS ORDERED: Mag Hydrox/Al Hydrox/Simeth 30 ML UDC PO PRN (12:02)
[2021-06-23] MEDS ORDERED: Naloxone 0.4 MG/ML INJ IVP PRN (12:02)
[2021-06-23] MEDS ORDERED: Melatonin 3 MG TABLET PO PRN (12:02)
[2021-06-23] MEDS: SODIUM ZIRCONIUM CYCLOSILICATE 5 GM POWD.PACK PO SCH (14:50)
[2021-06-23] MEDS ORDERED: Octreotide 50 MCG/ML INJ SQ SCH (16:00)
[2021-06-23] MEDS: Albumin 25% 25gram/100mL 25 GM/100 ML IV.SOLN IVPB SCH ×2 (16:06→22:48)
[2021-06-23] MEDS ORDERED: *HR* Dextrose 50 % in Water (Syg) 50 ML SYRINGE IVP PRN (18:09)
[2021-06-23] MEDS ORDERED: D5% in Water 1,000 ML IVC PRN (18:09)
[2021-06-23] MEDS ORDERED: Dextrose 4 GM Chewable Tablets PO PRN ×2 (18:09)
[2021-06-23 18:23] LABS: Uric Acid 10.6 mg/dL (2.3-7.6)
[2021-06-23 20:00] LABS: Hepatitis B Surface Antigen Nonreactive (Nonreactive)
[2021-06-23 20:28] LABS: Hepatitis C Virus Antibody Nonreactive (Nonreactive)
[2021-06-23 20:30] LABS: Hepatitis B Core IgM Nonreactive (Nonreactive)
[2021-06-23] MEDS: Insulin LISPRO 300 UNITS/3 ML VIAL SUBQ SCH (20:30)
[2021-06-23 20:32] LABS: Hepatitis A Antibody IgM Nonreactive (Nonreactive)
[2021-06-23] MEDS: *HR* Heparin 5,000 UNIT/ML VIAL SQ SCH (20:48)
[2021-06-23] MEDS: Lactulose Oral Soln 20 GM/30 ML UDC PO SCH (20:51)
[2021-06-23] MEDS: Ondansetron 4 MG/2 ML VIAL IVP PRN (22:47)
[2021-06-24 02:12] LABS: Immature Granulocytes % 0.5 % (0-4)
[2021-06-24 02:14] LABS: Basophils # 0.1 K/mcL (0.0-0.2); Basophils % 1.1 %; Eosinophils # 0.2 K/mcL (0.0-0.6); Eosinophils % 3.4 %; Hematocrit 28.9 % (37.5-50.1); Hemoglobin 9.8 g/dL (12.9-16.9); Immature Platelets 4.3 % (1.1-6.1); Lymphocytes # 1.1 K/mcL (0.6-4.6); Lymphocytes % 25.2 %; Mean Corpuscular HGB Conc 33.9 g/dL (31.6-35.5); Mean Corpuscular Hemoglobin 32.9 pg (28.0-33.3); Mean Platelet Volume 12.5 fL (9.4-12.4); Monocytes # 0.5 K/mcL (0.0-1.3); Monocytes % 11.2 %; Neutrophils # 2.6 K/mcL (1.6-8.9); Red Blood Count 2.98 M/mcL (4.19-5.50); Segmented Neutrophils % 58.6 %; White Blood Count 4.4 K/mcL (4.3-11.1)
[2021-06-24 02:43] LABS: Albumin/Globulin Ratio 1.4 (1.1-2.2); Bilirubin,Total 1.4 mg/dL (0.3-1.0); Calcium 8.9 mg/dL (8.6-10.3); Globulin 2.2 g/dL (2.4-3.5); Magnesium 2.8 mg/dL (1.6-2.6); Potassium 5.3 mEq/L (3.5-5.1); Total Protein 5.2 g/dL (6.4-8.9)
[2021-06-24 04:01] LABS: Platelet Count 77 K/mcL (140-400)
[2021-06-24 04:02] LABS: Platelet Estimate Decreased (Normal)
[2021-06-24] MEDS: *HR* Heparin 5,000 UNIT/ML VIAL SQ SCH ×3 (06:10→20:23)
[2021-06-24] MEDS: SODIUM ZIRCONIUM CYCLOSILICATE 5 GM POWD.PACK PO SCH (10:04)
[2021-06-24] MEDS: Aspirin Enteric Coated 81 MG Tablet PO SCH (10:04)
[2021-06-24] MEDS: Albumin 25% 25gram/100mL 25 GM/100 ML IV.SOLN IVPB SCH ×2 (10:04→15:32)
[2021-06-24] MEDS: Lactulose Oral Soln 20 GM/30 ML UDC PO SCH ×2 (10:04→20:22)
[2021-06-24] MEDS: Insulin LISPRO 300 UNITS/3 ML VIAL SUBQ SCH ×4 (10:05→21:00)
[2021-06-24] MEDS: Insulin DETEMIR 100 UNIT/ML X5UNITS SUBQ SCH (10:05)
[2021-06-24] MEDS ORDERED: Albumin 25% 25gram/100mL 25 GM/100 ML IV.SOLN IVPB ONE (13:06)
[2021-06-24 15:01] LABS: RBC,Peritoneal Fluid < 2000 RBC/mcL
[2021-06-24 15:19] LABS: Glucose,Peritoneal Fluid 152 mg/dL (No Ref Range); LDH,Peritoneal Fluid 37 Units/L (No Ref Range); Total Protein,Peritoneal Fluid < 2.0 g/dL
[2021-06-24 15:20] LABS: Appearance of Peritoneal Fl CLEAR (Clear)
[2021-06-24 16:58] LABS: Basophils,Peritoneal Fluid 0 %; Eosinophils,Peritoneal Fluid 0 %
[2021-06-25] MEDS ORDERED: 0.9 % Sodium Chloride 250 ML ONE (02:52)
[2021-06-25] MEDS: Albumin 25% 25gram/100mL 25 GM/100 ML IV.SOLN IVPB SCH ×4 (03:02→23:49)
[2021-06-25] MEDS: Ondansetron 4 MG/2 ML VIAL IVP PRN (03:45)
[2021-06-25] MEDS: *HR* Heparin 5,000 UNIT/ML VIAL SQ SCH ×3 (06:37→20:01)
[2021-06-25] MEDS: Aspirin Enteric Coated 81 MG Tablet PO SCH (07:59)
[2021-06-25] MEDS: SODIUM ZIRCONIUM CYCLOSILICATE 5 GM POWD.PACK PO SCH (08:00)
[2021-06-25 09:47] LABS: INR 1.8; Prothrombin Time 20.5 Seconds (9.4-12.1)
[2021-06-25 09:56] LABS: Red Cell Distribution Width 13.8 % (11.5-14.5)
[2021-06-25 09:58] LABS: Immature Platelets 5.5 % (1.1-6.1); Mean Corpuscular HGB Conc 33.3 g/dL (31.6-35.5); Mean Corpuscular Hemoglobin 32.9 pg (28.0-33.3); Mean Corpuscular Volume 98.7 fL (83.0-100.0); Mean Platelet Volume 12.4 fL (9.4-12.4); Red Blood Count 3.04 M/mcL (4.19-5.50); White Blood Count 3.5 K/mcL (4.3-11.1)
[2021-06-25] MEDS: Insulin LISPRO 300 UNITS/3 ML VIAL SUBQ SCH ×4 (10:02→20:01)
[2021-06-25] MEDS: Lactulose Oral Soln 20 GM/30 ML UDC PO SCH ×2 (10:03→20:00)
[2021-06-25] MEDS: Insulin DETEMIR 100 UNIT/ML X5UNITS SUBQ SCH (10:03)
[2021-06-25 10:35] LABS: Albumin 3.9 g/dL (3.5-5.7); Albumin/Globulin Ratio 2.1 (1.1-2.2); Bilirubin,Total 2.5 mg/dL (0.3-1.0); Calcium 9.6 mg/dL (8.6-10.3); Globulin 1.9 g/dL (2.4-3.5); Potassium 5.5 mEq/L (3.5-5.1); Total Protein 5.8 g/dL (6.4-8.9)
[2021-06-25 12:58] LABS: Bacteria,Urine Few per hpf (None-Few); Bilirubin,Urine Negative (Negative); Blood,Urine Negative (Negative); Clarity,Urine Clear (Clear); Color,Urine Light-Yellow (Yellow); Glucose,Urine (UA) 300 mg/dL (Normal); Hyaline Casts,Urine Few per lpf (None Seen); Ketones,Urine Negative (Negative); Leukocyte Esterase,Urine Negative (Negative); Mucus,Urine Few per lpf (None-Few); Nitrite,Urine Negative (Negative); PH,Urine 5.5 pH Units (5.0-8.0); Protein,Urine Negative (Neg-Trace); RBC,Urine 0-3 per hpf (0-3); Specific Gravity,Urine 1.016 (1.010-1.025); Urobilinogen,Urine Normal (Normal); WBC,Urine 0-3 per hpf (0-3)
[2021-06-25 13:17] LABS: Creatinine,Urine 88 mg/dL; Microalbumin,Urine < 7 mg/L; Protein/Creatinine Ratio,Urine 0.07 mg/mg (0.00-0.20); Sodium, Urine < 10.0 mEq/L
[2021-06-25 15:46] VITALS: O2SAT 99
[2021-06-26 05:11] LABS: Red Blood Count 2.79 M/mcL (4.19-5.50); Red Cell Distribution Width 13.8 % (11.5-14.5)
[2021-06-26 05:13] LABS: Hematocrit 27.2 % (37.5-50.1); Hemoglobin 9.1 g/dL (12.9-16.9); Immature Platelets 5.8 % (1.1-6.1); Mean Corpuscular HGB Conc 33.5 g/dL (31.6-35.5); Mean Corpuscular Hemoglobin 32.6 pg (28.0-33.3); Mean Corpuscular Volume 97.5 fL (83.0-100.0); Mean Platelet Volume 12.8 fL (9.4-12.4); White Blood Count 2.8 K/mcL (4.3-11.1)
[2021-06-26 05:17] LABS: Prothrombin Time 22.7 Seconds (9.4-12.1)
[2021-06-26 05:29] LABS: Albumin 3.7 g/dL (3.5-5.7); Albumin/Globulin Ratio 1.9 (1.1-2.2); Bilirubin,Total 1.5 mg/dL (0.3-1.0); Calcium 9.2 mg/dL (8.6-10.3); Globulin 1.9 g/dL (2.4-3.5); Potassium 4.8 mEq/L (3.5-5.1); Total Protein 5.6 g/dL (6.4-8.9)
[2021-06-26] MEDS: *HR* Heparin 5,000 UNIT/ML VIAL SQ SCH (05:35)
[2021-06-26 07:35] VITALS: BP 118/73; PULSE 75; TEMP 98
[2021-06-26] MEDS: Albumin 25% 25gram/100mL 25 GM/100 ML IV.SOLN IVPB SCH (08:51)
[2021-06-26] MEDS: Insulin DETEMIR 100 UNIT/ML X5UNITS SUBQ SCH (08:52)
[2021-06-26] MEDS: Lactulose Oral Soln 20 GM/30 ML UDC PO SCH (08:52)
[2021-06-26] MEDS: Aspirin Enteric Coated 81 MG Tablet PO SCH (08:53)
[2021-06-26] MEDS: Insulin LISPRO 300 UNITS/3 ML VIAL SUBQ SCH (09:47)
[2021-06-26 21:06] LABS: Fluid Source for Albumin PERITONEAL
== END 2021-06-26 13:01 | disposition home or self-care (01) | DRG 469 ==
LOC: EMEROOARM 07:50 → 2ANU 07:50 → SUATTDRO 11:33 → 2ANU 12:24 → SUATTDRO 06-24 14:39 → 3NENU 06-24 18:36
PROVIDERS: ADMIT Internal Medicine; ATTEND Family Medicine

== ENCOUNTER 2021-10-26 09:36 | Observation (INO) ==
[2021-10-26] MEDS ORDERED: Insulin Human Regular 10 UNIT in 0.9 % Sodium Chloride 10 ML IV ONE (10:21)
[2021-10-26] MEDS ORDERED: SODIUM ZIRCONIUM CYCLOSILICATE 5 GM POWD.PACK PO SCH (10:30)
[2021-10-26] MEDS ORDERED: SODIUM ZIRCONIUM CYCLOSILICATE 5 GM POWD.PACK PO ONE (11:08)
[2021-10-26 11:15] LABS: Basophils # 0.1 K/mcL (0.0-0.2); Basophils % 1.2 %; Eosinophils # 0.5 K/mcL (0.0-0.6); Eosinophils % 7.5 %; Hematocrit 34.3 % (37.5-50.1); Hemoglobin 11.5 g/dL (12.9-16.9); Immature Granulocytes % 0.7 % (0-4); Immature Platelets 4.5 % (1.1-6.1); Lymphocytes # 0.9 K/mcL (0.6-4.6); Lymphocytes % 13.6 %; Mean Corpuscular HGB Conc 33.5 g/dL (31.6-35.5); Mean Corpuscular Hemoglobin 31.6 pg (28.0-33.3); Mean Corpuscular Volume 94.2 fL (83.0-100.0); Mean Platelet Volume 10.9 fL (9.4-12.4); Monocytes # 0.5 K/mcL (0.0-1.3); Monocytes % 7.1 %; Neutrophils # 4.8 K/mcL (1.6-8.9); Platelet Count 108 K/mcL (140-400); Red Blood Count 3.64 M/mcL (4.19-5.50); Red Cell Distribution Width 14.6 % (11.5-14.5); Segmented Neutrophils % 69.9 %; White Blood Count 6.9 K/mcL (4.3-11.1)
[2021-10-26] MEDS ORDERED: Ondansetron 4 MG/2 ML VIAL IVP ONE (11:20)
[2021-10-26] MEDS ORDERED: *HR* Dextrose 25% in Water (Syg) 10 ML SYRINGE IVP ONE (11:24)
[2021-10-26 11:39] LABS: Alanine Aminotransferase 33 Units/L (7-52); Albumin 3.3 g/dL (3.5-5.7); Albumin/Globulin Ratio 1.2 (1.1-2.2); Alkaline Phosphatase 187 Units/L (34-104); Aspartate Amino Transferase 52 Units/L (13-39); BUN/Creatinine Ratio 23 (6-26); Bilirubin,Direct 0.5 mg/dL (0.0-0.2); Bilirubin,Indirect 0.9 mg/dL (0.0-1.0); Bilirubin,Total 1.4 mg/dL (0.3-1.0); Blood Urea Nitrogen 49 mg/dL (6-20); Carbon Dioxide 18 mEq/L (23-29); Chloride 103 mEq/L (98-107); Globulin 2.8 g/dL (2.4-3.5); Glucose 146 mg/dL (70-105); Magnesium 2.2 mg/dL (1.6-2.6); Osmolality,Calculated 280 (280-300); Phosphorous 4.2 mg/dL (2.7-4.5); Potassium 6.9 mEq/L (3.5-5.1); Sodium 127 mEq/L (136-145); Total Protein 6.1 g/dL (6.4-8.9); Troponin I < 0.03 ng/mL (< 0.04); eGFR For African Americans 39 (> 60); eGFR For Non-African Americans 32 (> 60)
[2021-10-26] MEDS ORDERED: Dextrose Gel 15 GM/37.5 ML TUBE PO PRN ×2 (13:05)
[2021-10-26] MEDS ORDERED: D5% in Water 1,000 ML IVC PRN (13:05)
[2021-10-26] MEDS ORDERED: Naloxone 0.4 MG/ML INJ IVP PRN (13:05)
[2021-10-26] MEDS ORDERED: *HR* Dextrose 50 % in Water (Syg) 50 ML SYRINGE IVP PRN (13:05)
[2021-10-26] MEDS ORDERED: Ondansetron 4 MG/2 ML VIAL IVP PRN (13:05)
[2021-10-26] MEDS ORDERED: Acetaminophen 325 MG TABLET PO PRN (13:05)
[2021-10-26] MEDS ORDERED: Calcium Gluconate 1gm/50mL BAG IVPB ONE (13:30)
[2021-10-26] MEDS: Albumin 25% 25gram/100mL 25 GM/100 ML IV.SOLN IVPB SCH (17:49)
[2021-10-26] MEDS: Insulin LISPRO 300 UNITS/3 ML VIAL SUBQ SCH (17:52)
[2021-10-26 18:17] LABS: Potassium 6.5 mEq/L (3.5-5.1); Uric Acid 8.8 mg/dL (2.3-7.6)
[2021-10-26 19:59] LABS: Bilirubin,Urine Negative (Negative); Blood,Urine Negative (Negative); Clarity,Urine Clear (Clear); Color,Urine Yellow (Yellow); Glucose,Urine (UA) Normal (Normal); Ketones,Urine Trace mg/dL (Negative); Leukocyte Esterase,Urine Negative (Negative); Nitrite,Urine Negative (Negative); PH,Urine 5.5 pH Units (5.0-8.0); Protein,Urine Trace mg/dL (Neg-Trace); Specific Gravity,Urine 1.025 (1.010-1.025)
[2021-10-26 20:18] LABS: Creatinine,Urine 174 mg/dL; Protein/Creatinine Ratio,Urine 0.08 mg/mg (0.00-0.20); Sodium, Urine < 10.0 mEq/L
[2021-10-26] MEDS ORDERED: Insulin DETEMIR 100 UNIT/ML X5UNITS SUBQ SCH (21:00)
[2021-10-27 02:46] LABS: Red Blood Count 3.32 M/mcL (4.19-5.50)
[2021-10-27 02:49] LABS: Basophils # 0.1 K/mcL (0.0-0.2); Basophils % 0.8 %; Eosinophils # 0.4 K/mcL (0.0-0.6); Eosinophils % 5.2 %; Hematocrit 31.2 % (37.5-50.1); Hemoglobin 10.4 g/dL (12.9-16.9); Immature Granulocytes % 0.6 % (0-4); Immature Platelets 5.5 % (1.1-6.1); Lymphocytes # 1.1 K/mcL (0.6-4.6); Lymphocytes % 15.4 %; Mean Corpuscular HGB Conc 33.3 g/dL (31.6-35.5); Mean Corpuscular Hemoglobin 31.3 pg (28.0-33.3); Mean Platelet Volume 11.6 fL (9.4-12.4); Monocytes # 0.6 K/mcL (0.0-1.3); Monocytes % 8.4 %; Neutrophils # 4.9 K/mcL (1.6-8.9); Red Cell Distribution Width 14.6 % (11.5-14.5); Segmented Neutrophils % 69.6 %; White Blood Count 7.1 K/mcL (4.3-11.1)
[2021-10-27 03:04] LABS: Platelet Count 96 K/mcL (140-400)
[2021-10-27 03:11] LABS: Calcium 9.3 mg/dL (8.6-10.3); Magnesium 2.4 mg/dL (1.6-2.6); Potassium 5.7 mEq/L (3.5-5.1)
[2021-10-27] MEDS: Albumin 25% 25gram/100mL 25 GM/100 ML IV.SOLN IVPB SCH ×2 (06:12→17:59)
[2021-10-27] MEDS: Insulin LISPRO 300 UNITS/3 ML VIAL SUBQ SCH ×3 (08:10→18:02)
[2021-10-27 11:10] VITALS: O2SAT 100
[2021-10-27] MEDS: SODIUM ZIRCONIUM CYCLOSILICATE 5 GM POWD.PACK PO SCH (14:13)
[2021-10-27] MEDS ORDERED: Insulin DETEMIR 100 UNIT/ML X5UNITS SUBQ SCH (21:00)
[2021-10-28 03:31] LABS: Hematocrit 26.1 % (37.5-50.1); Mean Corpuscular HGB Conc 32.6 g/dL (31.6-35.5); Mean Corpuscular Hemoglobin 30.8 pg (28.0-33.3); Mean Corpuscular Volume 94.6 fL (83.0-100.0); Mean Platelet Volume 11.7 fL (9.4-12.4); Red Blood Count 2.76 M/mcL (4.19-5.50); Red Cell Distribution Width 14.7 % (11.5-14.5)
[2021-10-28 03:32] LABS: Hemoglobin 8.5 g/dL (12.9-16.9); Platelet Count 68 K/mcL (140-400); White Blood Count 3.1 K/mcL (4.3-11.1)
[2021-10-28 03:46] LABS: Calcium 8.9 mg/dL (8.6-10.3); Potassium 5.4 mEq/L (3.5-5.1)
[2021-10-28] MEDS: Albumin 25% 25gram/100mL 25 GM/100 ML IV.SOLN IVPB SCH (06:19)
[2021-10-28] MEDS: Insulin LISPRO 300 UNITS/3 ML VIAL SUBQ SCH ×2 (08:01→13:18)
[2021-10-28] MEDS ORDERED: SODIUM ZIRCONIUM CYCLOSILICATE 5 GM POWD.PACK PO SCH (09:00)
[2021-10-28] MEDS: SODIUM ZIRCONIUM CYCLOSILICATE 5 GM POWD.PACK PO SCH (11:13)
[2021-10-28 12:04] LABS: Hemoglobin 9.7 g/dL (12.9-16.9); Mean Platelet Volume 11.5 fL (9.4-12.4)
[2021-10-28 12:06] LABS: Immature Platelets 5.3 % (1.1-6.1); Mean Corpuscular HGB Conc 33.4 g/dL (31.6-35.5); Mean Corpuscular Hemoglobin 31.7 pg (28.0-33.3); Mean Corpuscular Volume 94.8 fL (83.0-100.0); Red Blood Count 3.06 M/mcL (4.19-5.50); Red Cell Distribution Width 14.6 % (11.5-14.5); White Blood Count 3.4 K/mcL (4.3-11.1)
[2021-10-28 12:16] VITALS: BP 112/70; PULSE 73; TEMP 97.9
== END 2021-10-28 14:40 | disposition home or self-care (01) ==
LOC: 2ANU 09:36 → EMEROOARM 09:36 → SUATTDRO 16:56 → 2ANU 17:17
PROVIDERS: ADMIT Internal Medicine; ATTEND Internal Medicine

== ENCOUNTER 2021-11-23 10:23 | Observation (INO) ==
[2021-11-23 11:09] LABS: Basophils # 0.1 K/mcL (0.0-0.2); Basophils % 0.9 %; Eosinophils # 0.4 K/mcL (0.0-0.6); Eosinophils % 6.6 %; Hematocrit 33.8 % (37.5-50.1); Hemoglobin 11.2 g/dL (12.9-16.9); Immature Granulocytes % 0.4 % (0-4); Lymphocytes # 0.8 K/mcL (0.6-4.6); Lymphocytes % 14.3 %; Mean Corpuscular HGB Conc 33.1 g/dL (31.6-35.5); Mean Corpuscular Hemoglobin 30.8 pg (28.0-33.3); Mean Corpuscular Volume 92.9 fL (83.0-100.0); Mean Platelet Volume 12.1 fL (9.4-12.4); Monocytes # 0.5 K/mcL (0.0-1.3); Monocytes % 8.2 %; Neutrophils # 3.9 K/mcL (1.6-8.9); Platelet Count 116 K/mcL (140-400); Red Blood Count 3.64 M/mcL (4.19-5.50); Segmented Neutrophils % 69.6 %; White Blood Count 5.6 K/mcL (4.3-11.1)
[2021-11-23 11:16] LABS: Prothrombin Time 21.7 Seconds (9.4-12.1)
[2021-11-23 11:34] LABS: Alanine Aminotransferase 43 Units/L (7-52); Albumin 3.3 g/dL (3.5-5.7); Albumin/Globulin Ratio 1.1 (1.1-2.2); Alkaline Phosphatase 191 Units/L (34-104); Aspartate Amino Transferase 49 Units/L (13-39); BUN/Creatinine Ratio 23 (6-26); Bilirubin,Direct 0.8 mg/dL (0.0-0.2); Bilirubin,Indirect 1.2 mg/dL (0.0-1.0); Blood Urea Nitrogen 47 mg/dL (6-20); Calcium 9.1 mg/dL (8.6-10.3); Carbon Dioxide 17 mEq/L (23-29); Chloride 97 mEq/L (98-107); Globulin 2.9 g/dL (2.4-3.5); Glucose 473 mg/dL (70-105); Lipase 57 Units/L (11-82); Osmolality,Calculated 289 (280-300); Potassium 5.6 mEq/L (3.5-5.1); Sodium 123 mEq/L (136-145); Total Protein 6.2 g/dL (6.4-8.9); Troponin I < 0.03 ng/mL (< 0.04)
[2021-11-23] MEDS ORDERED: Ondansetron ODT 4 MG TAB.RAPDIS SL PRN (13:51)
[2021-11-23] MEDS ORDERED: Melatonin 3 MG TABLET PO PRN (13:51)
[2021-11-23] MEDS ORDERED: Naloxone 0.4 MG/ML INJ IVP PRN (13:51)
[2021-11-23] MEDS ORDERED: Insulin Human Regular 10 UNIT in 0.9 % Sodium Chloride 10 ML IV ONE (14:00)
[2021-11-23] MEDS ORDERED: *HR* Dextrose 50 % in Water (Syg) 50 ML SYRINGE IVP ONE (14:00)
[2021-11-23] MEDS ORDERED: Dextrose Gel 15 GM/37.5 ML TUBE PO PRN ×2 (15:18)
[2021-11-23] MEDS ORDERED: *HR* Dextrose 50 % in Water (Syg) 50 ML SYRINGE IVP PRN (15:18)
[2021-11-23] MEDS ORDERED: D5% in Water 1,000 ML IVC PRN (15:18)
[2021-11-23] MEDS ORDERED: Lactulose Oral Soln 20 GM/30 ML UDC PO PRN (16:39)
[2021-11-23] MEDS: Albumin 25% 25gram/100mL 25 GM/100 ML IV.SOLN IVC SCH ×2 (16:56→16:57)
[2021-11-23] MEDS: SODIUM ZIRCONIUM CYCLOSILICATE 5 GM POWD.PACK PO SCH ×2 (16:56→20:18)
[2021-11-23] MEDS: Insulin LISPRO 300 UNITS/3 ML VIAL SUBQ SCH (17:50)
[2021-11-23] MEDS: Insulin DETEMIR 100 UNIT/ML X5UNITS SUBQ SCH (20:45)
[2021-11-24 05:54] LABS: Eosinophils # 0.3 K/mcL (0.0-0.6); Eosinophils % 8.1 %; Hematocrit 30.2 % (37.5-50.1); Hemoglobin 10.2 g/dL (12.9-16.9); Immature Granulocytes % 0.5 % (0-4); Immature Platelets 5.7 % (1.1-6.1); Lymphocytes # 0.8 K/mcL (0.6-4.6); Lymphocytes % 19.6 %; Mean Corpuscular HGB Conc 33.8 g/dL (31.6-35.5); Mean Corpuscular Volume 91.8 fL (83.0-100.0); Mean Platelet Volume 11.9 fL (9.4-12.4); Monocytes # 0.5 K/mcL (0.0-1.3); Monocytes % 11.2 %; Neutrophils # 2.4 K/mcL (1.6-8.9); Red Blood Count 3.29 M/mcL (4.19-5.50); Segmented Neutrophils % 59.6 %; White Blood Count 4.1 K/mcL (4.3-11.1)
[2021-11-24 05:55] LABS: Platelet Count 80 K/mcL (140-400)
[2021-11-24 05:57] LABS: Prothrombin Time 21.8 Seconds (9.4-12.1)
[2021-11-24 05:59] LABS: Estimated Average Glucose 206 mg/dl; Hemoglobin A1C 8.8 %
[2021-11-24 06:00] LABS: Activated Partial Thrombo Time 30.2 Seconds (26.0-36.0)
[2021-11-24 06:14] LABS: Albumin 3.4 g/dL (3.5-5.7); Albumin/Globulin Ratio 1.4 (1.1-2.2); Bilirubin,Total 1.6 mg/dL (0.3-1.0); Calcium 9.1 mg/dL (8.6-10.3); Chol/HDL Ratio 3.3 (0-4.9); Globulin 2.4 g/dL (2.4-3.5); Magnesium 2.6 mg/dL (1.6-2.6); Phosphorous 3.7 mg/dL (2.7-4.5); Potassium 4.8 mEq/L (3.5-5.1); Total Protein 5.8 g/dL (6.4-8.9)
[2021-11-24] MEDS: SODIUM ZIRCONIUM CYCLOSILICATE 5 GM POWD.PACK PO SCH (08:33)
[2021-11-24] MEDS: Insulin DETEMIR 100 UNIT/ML X5UNITS SUBQ SCH (08:41)
[2021-11-24] MEDS: Insulin LISPRO 300 UNITS/3 ML VIAL SUBQ SCH ×2 (08:41→11:53)
[2021-11-24 11:20] VITALS: BP 130/67; PULSE 83; TEMP 98.3; O2SAT 99
== END 2021-11-24 14:02 | disposition home or self-care (01) ==
LOC: EMEROOARM 10:23 → 3ANU 10:23 → SUATTDRO 15:33 → 3ANU 16:04
PROVIDERS: ADMIT Internal Medicine; ATTEND Pharmacist

== ENCOUNTER 2021-11-29 10:27 | Inpatient (IN) ==
[2021-11-29] MEDS ORDERED: Ondansetron 4 MG/2 ML VIAL IVP ONE (10:52)
[2021-11-29 11:51] LABS: Basophils # 0.1 K/mcL (0.0-0.2); Basophils % 0.5 %; Eosinophils # 0.1 K/mcL (0.0-0.6); Eosinophils % 0.6 %; Hemoglobin 10.6 g/dL (12.9-16.9); Immature Granulocytes % 0.8 % (0-4); Lymphocytes # 0.8 K/mcL (0.6-4.6); Lymphocytes % 8.7 %; Mean Corpuscular HGB Conc 34.2 g/dL (31.6-35.5); Mean Corpuscular Volume 90.6 fL (83.0-100.0); Mean Platelet Volume 11.8 fL (9.4-12.4); Monocytes # 0.6 K/mcL (0.0-1.3); Monocytes % 5.8 %; Neutrophils # 7.9 K/mcL (1.6-8.9); Platelet Count 110 K/mcL (140-400); Red Blood Count 3.42 M/mcL (4.19-5.50); Red Cell Distribution Width 13.9 % (11.5-14.5); Segmented Neutrophils % 83.6 %
[2021-11-29 11:52] LABS: White Blood Count 9.4 K/mcL (4.3-11.1)
[2021-11-29] MEDS ORDERED: Metoclopramide 10 MG/2 ML VIAL IVP ONE (12:31)
[2021-11-29 12:38] LABS: Albumin/Globulin Ratio 1.4 (1.1-2.2); Bilirubin,Direct 1.2 mg/dL (0.0-0.2); Bilirubin,Indirect 1.7 mg/dL (0.0-1.0); Bilirubin,Total 2.9 mg/dL (0.3-1.0); Calcium 9.9 mg/dL (8.6-10.3); Globulin 2.8 g/dL (2.4-3.5); Potassium 6.3 mEq/L (3.5-5.1); Total Protein 6.8 g/dL (6.4-8.9)
[2021-11-29] MEDS ORDERED: Insulin Human Regular 10 UNIT in 0.9 % Sodium Chloride 10 ML IV ONE (13:01)
[2021-11-29] MEDS ORDERED: *HR* Promethazine 25 MG/ML VIAL IM ONE (13:20)
[2021-11-29] MEDS ORDERED: *HR* LORazepam 2 MG/ML VIAL IVP ONE (13:28)
[2021-11-29] MEDS ORDERED: Naloxone 0.4 MG/ML INJ IVP PRN (15:49)
[2021-11-29] MEDS ORDERED: Ondansetron 4 MG/2 ML VIAL IVP PRN (15:49)
[2021-11-29] MEDS ORDERED: *HR* Dextrose 50 % in Water (Syg) 50 ML SYRINGE IVP PRN (15:55)
[2021-11-29] MEDS ORDERED: D5% in Water 1,000 ML IVC PRN (15:55)
[2021-11-29] MEDS ORDERED: Dextrose Gel 15 GM/37.5 ML TUBE PO PRN ×2 (15:55)
[2021-11-29 16:19] LABS: Albumin 3.7 g/dL (3.5-5.7); Albumin/Globulin Ratio 1.2 (1.1-2.2); Calcium 9.9 mg/dL (8.6-10.3); Potassium 5.9 mEq/L (3.5-5.1); Total Protein 6.7 g/dL (6.4-8.9)
[2021-11-29] MEDS: Albumin 25% 25gram/100mL 25 GM/100 ML IV.SOLN IVPB SCH ×2 (16:19→23:58)
[2021-11-29] MEDS ORDERED: *HR* FentaNYL (PF) 100 MCG/2 ML VIAL IVP ONE (17:19)
[2021-11-29] MEDS: Lactulose Oral Soln 20 GM/30 ML UDC PO SCH (18:20)
[2021-11-29] MEDS: Insulin LISPRO 300 UNITS/3 ML VIAL SUBQ SCH ×2 (18:26→22:41)
[2021-11-29] MEDS: rOPINIRole 0.25 MG TABLET PO SCH (19:38)
[2021-11-29] MEDS ORDERED: Lactulose Oral Soln 20 GM/30 ML UDC PO SCH (21:00)
[2021-11-29] MEDS ORDERED: tiZANidine 4 MG TABLET PO ONE (21:37)
[2021-11-29 23:51] LABS: Bacteria,Urine Few per hpf (None-Few); Bilirubin,Urine Negative (Negative); Blood,Urine Negative (Negative); Clarity,Urine Clear (Clear); Color,Urine Yellow (Yellow); Glucose,Urine (UA) 200 mg/dL (Normal); Hyaline Casts,Urine Many per lpf (None Seen); Ketones,Urine Negative (Negative); Leukocyte Esterase,Urine Negative (Negative); Mucus,Urine Few per lpf (None-Few); Nitrite,Urine Negative (Negative); PH,Urine 5.5 pH Units (5.0-8.0); Protein,Urine Trace mg/dL (Neg-Trace); Specific Gravity,Urine 1.019 (1.010-1.025); Squamous Epithelial Cell,Urine Few per hpf (None-Few); Urobilinogen,Urine Normal (Normal); WBC,Urine 0-3 per hpf (0-3)
[2021-11-30 00:06] LABS: Creatinine,Urine 152 mg/dL; Sodium, Urine < 10.0 mEq/L
[2021-11-30] MEDS: Insulin LISPRO 300 UNITS/3 ML VIAL SUBQ SCH ×4 (08:49→21:30)
[2021-11-30] MEDS: Albumin 25% 25gram/100mL 25 GM/100 ML IV.SOLN IVPB SCH ×2 (09:04→17:10)
[2021-11-30] MEDS: Lactulose Oral Soln 20 GM/30 ML UDC PO SCH ×2 (09:05→21:28)
[2021-11-30] MEDS: polyethylene glycoL 3350 17 GM POWD.PACK PO SCH (11:46)
[2021-11-30] MEDS: SODIUM ZIRCONIUM CYCLOSILICATE 5 GM POWD.PACK PO SCH ×2 (15:17→21:28)
[2021-11-30 18:30] LABS: Immature Platelets 5.1 % (1.1-6.1)
[2021-11-30 18:35] LABS: INR 2.1; Prothrombin Time 23.1 Seconds (9.4-12.1)
[2021-11-30 18:45] LABS: Basophils % 1.1 %; Eosinophils # 0.2 K/mcL (0.0-0.6); Eosinophils % 4.3 %; Hematocrit 26.9 % (37.5-50.1); Hemoglobin 9.1 g/dL (12.9-16.9); Immature Granulocytes % 0.9 % (0-4); Lymphocytes # 0.6 K/mcL (0.6-4.6); Lymphocytes % 18.4 %; Mean Corpuscular HGB Conc 33.8 g/dL (31.6-35.5); Mean Corpuscular Hemoglobin 30.7 pg (28.0-33.3); Mean Corpuscular Volume 90.9 fL (83.0-100.0); Mean Platelet Volume 11.8 fL (9.4-12.4); Monocytes # 0.4 K/mcL (0.0-1.3); Monocytes % 10.9 %; Red Blood Count 2.96 M/mcL (4.19-5.50); Red Cell Distribution Width 14.1 % (11.5-14.5); Segmented Neutrophils % 64.4 %
[2021-11-30 18:50] LABS: Uric Acid 10.9 mg/dL (2.3-7.6)
[2021-11-30 18:52] LABS: Albumin 3.7 g/dL (3.5-5.7); Albumin/Globulin Ratio 1.7 (1.1-2.2); Bilirubin,Total 2.3 mg/dL (0.3-1.0); Calcium 9.5 mg/dL (8.6-10.3); Globulin 2.2 g/dL (2.4-3.5); Magnesium 2.9 mg/dL (1.6-2.6); Phosphorous 5.3 mg/dL (2.7-4.5); Total Protein 5.9 g/dL (6.4-8.9)
[2021-11-30 19:06] LABS: Neutrophils # 2.3 K/mcL (1.6-8.9); Platelet Count 81 K/mcL (140-400); White Blood Count 3.5 K/mcL (4.3-11.1)
[2021-11-30 19:07] LABS: Platelet Estimate Marked Decrease (Normal)
[2021-11-30] MEDS: rOPINIRole 0.25 MG TABLET PO SCH (21:29)
[2021-12-01] MEDS: Albumin 25% 25gram/100mL 25 GM/100 ML IV.SOLN IVPB SCH ×4 (00:13→23:50)
[2021-12-01 01:55] LABS: Basophils % 0.7 %; Eosinophils # 0.2 K/mcL (0.0-0.6); Eosinophils % 3.9 %; Hematocrit 27.2 % (37.5-50.1); Hemoglobin 9.4 g/dL (12.9-16.9); Immature Granulocytes % 0.7 % (0-4); Immature Platelets 5.5 % (1.1-6.1); Lymphocytes # 0.8 K/mcL (0.6-4.6); Lymphocytes % 19.2 %; Mean Corpuscular HGB Conc 34.6 g/dL (31.6-35.5); Mean Corpuscular Hemoglobin 31.2 pg (28.0-33.3); Mean Corpuscular Volume 90.4 fL (83.0-100.0); Mean Platelet Volume 12.1 fL (9.4-12.4); Monocytes # 0.5 K/mcL (0.0-1.3); Monocytes % 12.1 %; Neutrophils # 2.6 K/mcL (1.6-8.9); Red Blood Count 3.01 M/mcL (4.19-5.50); Red Cell Distribution Width 13.9 % (11.5-14.5); Segmented Neutrophils % 63.4 %; White Blood Count 4.1 K/mcL (4.3-11.1)
[2021-12-01 01:56] LABS: Platelet Count 80 K/mcL (140-400)
[2021-12-01 02:13] LABS: Albumin/Globulin Ratio 1.7 (1.1-2.2); Calcium 9.7 mg/dL (8.6-10.3); Globulin 2.3 g/dL (2.4-3.5); Potassium 4.8 mEq/L (3.5-5.1); Total Protein 6.3 g/dL (6.4-8.9)
[2021-12-01] MEDS ORDERED: Baclofen 10 MG TABLET PO PRN (07:23)
[2021-12-01] MEDS: Aspirin Enteric Coated 81 MG Tablet PO SCH (08:30)
[2021-12-01] MEDS: polyethylene glycoL 3350 17 GM POWD.PACK PO SCH (08:30)
[2021-12-01] MEDS: Lactulose Oral Soln 20 GM/30 ML UDC PO SCH ×2 (08:30→20:16)
[2021-12-01] MEDS: Insulin LISPRO 300 UNITS/3 ML VIAL SUBQ SCH ×4 (08:32→21:23)
[2021-12-01] MEDS: Insulin DETEMIR 100 UNIT/ML X5UNITS SUBQ SCH (12:07)
[2021-12-01] MEDS: rOPINIRole 0.25 MG TABLET PO SCH (20:16)
[2021-12-02 04:16] LABS: Immature Granulocytes % 0.6 % (0-4)
[2021-12-02 04:18] LABS: Basophils % 1.2 %; Eosinophils # 0.2 K/mcL (0.0-0.6); Eosinophils % 4.9 %; Hematocrit 25.6 % (37.5-50.1); Hemoglobin 8.7 g/dL (12.9-16.9); Immature Platelets 6.2 % (1.1-6.1); Lymphocytes # 0.7 K/mcL (0.6-4.6); Lymphocytes % 21.7 %; Mean Corpuscular Hemoglobin 30.7 pg (28.0-33.3); Mean Corpuscular Volume 90.5 fL (83.0-100.0); Mean Platelet Volume 11.9 fL (9.4-12.4); Monocytes # 0.5 K/mcL (0.0-1.3); Monocytes % 13.8 %; Neutrophils # 1.9 K/mcL (1.6-8.9); Red Blood Count 2.83 M/mcL (4.19-5.50); Red Cell Distribution Width 13.7 % (11.5-14.5); Segmented Neutrophils % 57.8 %; White Blood Count 3.3 K/mcL (4.3-11.1)
[2021-12-02 04:28] LABS: Albumin 4.2 g/dL (3.5-5.7); Albumin/Globulin Ratio 2.2 (1.1-2.2); Bilirubin,Total 2.3 mg/dL (0.3-1.0); Calcium 9.7 mg/dL (8.6-10.3); Globulin 1.9 g/dL (2.4-3.5); Platelet Count 74 K/mcL (140-400); Potassium 4.2 mEq/L (3.5-5.1); Total Protein 6.1 g/dL (6.4-8.9)
[2021-12-02] MEDS: polyethylene glycoL 3350 17 GM POWD.PACK PO SCH (08:24)
[2021-12-02] MEDS: Lactulose Oral Soln 20 GM/30 ML UDC PO SCH (08:24)
[2021-12-02] MEDS: Insulin DETEMIR 100 UNIT/ML X5UNITS SUBQ SCH (08:25)
[2021-12-02] MEDS: Aspirin Enteric Coated 81 MG Tablet PO SCH (08:33)
[2021-12-02] MEDS: Insulin LISPRO 300 UNITS/3 ML VIAL SUBQ SCH ×2 (08:35→11:33)
[2021-12-02] MEDS: Albumin 25% 25gram/100mL 25 GM/100 ML IV.SOLN IVPB SCH (08:37)
[2021-12-02 11:52] VITALS: BP 124/78; PULSE 71; TEMP 97.5; O2SAT 100
== END 2021-12-02 12:57 | disposition home or self-care (01) | DRG 469 ==
LOC: 2ANU 10:27 → EMEROOARM 10:27 → 2ANU 17:56 → SUATTDRO 18:28
PROVIDERS: ADMIT Student in an Organized Health Care Education/Training Program; ATTEND Internal Medicine

== ENCOUNTER 2021-12-13 11:56 | Observation (INO) ==
[2021-12-13] MEDS ORDERED: Ondansetron 4 MG/2 ML VIAL IVP ONE (15:46)
[2021-12-13] MEDS ORDERED: Albumin 25% 12.5gm/50mL 12.5 GM/50 ML IV.SOLN IVPB ONE (15:46)
[2021-12-13] MEDS ORDERED: Naloxone 0.4 MG/ML INJ IVP PRN ×2 (15:59→17:12)
[2021-12-13] MEDS ORDERED: Ondansetron 4 MG/2 ML VIAL IVP PRN (16:15)
[2021-12-13] MEDS ORDERED: Melatonin 3 MG TABLET PO PRN (16:15)
[2021-12-13] MEDS ORDERED: Lactulose Oral Soln 20 GM/30 ML UDC PO PRN (16:17)
[2021-12-13] MEDS ORDERED: *HR* Dextrose 50 % in Water (Syg) 50 ML SYRINGE IVP PRN (16:20)
[2021-12-13] MEDS ORDERED: Dextrose Gel 15 GM/37.5 ML TUBE PO PRN ×2 (16:20)
[2021-12-13] MEDS ORDERED: D5% in Water 1,000 ML IVC PRN (16:20)
[2021-12-13] MEDS ORDERED: Insulin LISPRO 300 UNITS/3 ML VIAL SUBQ SCH ×3 (16:30→21:00)
[2021-12-13 16:41] LABS: VBG HCO3 21 mEq/L (21-27); VBG PCO2 39 mmHg (41-51); VBG PH 7.33 pH Units (7.32-7.42); VBG PO2 46 mmHg (25-50)
[2021-12-13 16:45] LABS: Alanine Aminotransferase 33 Units/L (7-52); Albumin 3.5 g/dL (3.5-5.7); Albumin/Globulin Ratio 1.4 (1.1-2.2); Alkaline Phosphatase 211 Units/L (34-104); Aspartate Amino Transferase 41 Units/L (13-39); BUN/Creatinine Ratio 24 (6-26); Bilirubin,Direct 1.3 mg/dL (0.0-0.2); Bilirubin,Indirect 1.7 mg/dL (0.0-1.0); Blood Urea Nitrogen 58 mg/dL (6-20); Calcium 9.4 mg/dL (8.6-10.3); Carbon Dioxide 22 mEq/L (23-29); Chloride 88 mEq/L (98-107); Globulin 2.5 g/dL (2.4-3.5); Glucose 480 mg/dL (70-105); Osmolality,Calculated 287 (280-300); Potassium 4.5 mEq/L (3.5-5.1); Sodium 120 mEq/L (136-145); Troponin I < 0.03 ng/mL (< 0.04)
[2021-12-13] MEDS ORDERED: Albumin 25% 25gram/100mL 25 GM/100 ML IV.SOLN IVPB ONE (17:00)
[2021-12-13] MEDS: Albumin 25% 25gram/100mL 25 GM/100 ML IV.SOLN IVPB SCH (17:41)
[2021-12-13] MEDS: Lactulose Oral Soln 20 GM/30 ML UDC PO SCH (20:07)
[2021-12-13] MEDS: rOPINIRole 0.25 MG TABLET PO SCH (20:07)
[2021-12-13 20:38] LABS: Calcium 9.1 mg/dL (8.6-10.3)
[2021-12-13] MEDS ORDERED: Insulin DETEMIR 100 UNIT/ML X5UNITS SUBQ SCH (21:00)
[2021-12-13] MEDS ORDERED: 0.9 % Sodium Chloride 250 ML IVC ONE (21:08)
[2021-12-13] MEDS ORDERED: Insulin Human Regular 10 UNIT in 0.9 % Sodium Chloride 10 ML IV ONE (21:08)
[2021-12-13] MEDS ORDERED: 0.9 % Sodium Chloride 1,000 ML IVC SCH (21:15)
[2021-12-13] MEDS ORDERED: Acetaminophen 325 MG TABLET PO ONE (22:36)
[2021-12-14] MEDS ORDERED: Magnesium Sulfate 1 GM/102 ML PIGGYBACK IVPB ONE (00:38)
[2021-12-14] MEDS ORDERED: Insulin LISPRO 300 UNITS/3 ML VIAL SUBQ ONE ×2 (00:45→21:09)
[2021-12-14] MEDS: Albumin 25% 25gram/100mL 25 GM/100 ML IV.SOLN IVPB SCH ×2 (02:15→08:58)
[2021-12-14] MEDS ORDERED: Gabapentin 100 MG CAPSULE PO ONE (03:12)
[2021-12-14 05:55] LABS: Immature Granulocytes % 0.5 % (0-4); Red Cell Distribution Width 13.5 % (11.5-14.5); White Blood Count 4.1 K/mcL (4.3-11.1)
[2021-12-14 05:57] LABS: Eosinophils # 0.2 K/mcL (0.0-0.6); Eosinophils % 5.1 %; Lymphocytes # 0.8 K/mcL (0.6-4.6); Lymphocytes % 18.3 %; Mean Corpuscular HGB Conc 34.6 g/dL (31.6-35.5); Mean Corpuscular Hemoglobin 30.5 pg (28.0-33.3); Mean Corpuscular Volume 88.1 fL (83.0-100.0); Monocytes # 0.5 K/mcL (0.0-1.3); Neutrophils # 2.6 K/mcL (1.6-8.9); Red Blood Count 2.95 M/mcL (4.19-5.50); Segmented Neutrophils % 64.1 %
[2021-12-14 06:01] LABS: INR 2.2
[2021-12-14 06:17] LABS: Calcium 9.5 mg/dL (8.6-10.3); Potassium 4.2 mEq/L (3.5-5.1)
[2021-12-14 06:18] LABS: Albumin 3.6 g/dL (3.5-5.7); Albumin/Globulin Ratio 1.7 (1.1-2.2); Bilirubin,Direct 0.9 mg/dL (0.0-0.2); Bilirubin,Total 1.9 mg/dL (0.3-1.0); Globulin 2.1 g/dL (2.4-3.5); Magnesium 3.1 mg/dL (1.6-2.6); Total Protein 5.7 g/dL (6.4-8.9)
[2021-12-14 06:20] LABS: Calcium 9.4 mg/dL (8.6-10.3); Potassium 4.2 mEq/L (3.5-5.1)
[2021-12-14 06:21] LABS: Calcium 9.5 mg/dL (8.6-10.3); Potassium 4.2 mEq/L (3.5-5.1)
[2021-12-14 07:01] LABS: Platelet Count 70 K/mcL (140-400)
[2021-12-14 07:05] LABS: Platelet Estimate Marked Decrease (Normal)
[2021-12-14] MEDS: Cholecalciferol (D-3) 1,000 UNIT (25MCG) TABLET PO SCH (08:51)
[2021-12-14] MEDS: Aspirin Enteric Coated 81 MG Tablet PO SCH (08:52)
[2021-12-14] MEDS: Lactulose Oral Soln 20 GM/30 ML UDC PO SCH ×2 (08:53→20:02)
[2021-12-14] MEDS: Insulin LISPRO 300 UNITS/3 ML VIAL SUBQ SCH ×4 (08:54→20:04)
[2021-12-14] MEDS ORDERED: Insulin DETEMIR 100 UNIT/ML X5UNITS SUBQ SCH (09:00)
[2021-12-14] MEDS ORDERED: Cyanocobalamin (B-12) 1,000 MCG/ML VIAL SQ ONE (10:54)
[2021-12-14] MEDS: Multivit/Ca/Min/Fe/FA 1 TAB TABLET PO SCH (11:25)
[2021-12-14 13:08] LABS: Bilirubin,Urine Negative (Negative); Blood,Urine Negative (Negative); Clarity,Urine Clear (Clear); Color,Urine Yellow (Yellow); Glucose,Urine (UA) 500 mg/dL (Normal); Hyaline Casts,Urine Few per lpf (None Seen); Ketones,Urine Negative (Negative); Leukocyte Esterase,Urine Negative (Negative); Mucus,Urine Few per lpf (None-Few); Nitrite,Urine Negative (Negative); PH,Urine 5.5 pH Units (5.0-8.0); Protein,Urine Negative (Neg-Trace); RBC,Urine 0-3 per hpf (0-3); Specific Gravity,Urine 1.017 (1.010-1.025); Squamous Epithelial Cell,Urine Few per hpf (None-Few); Urobilinogen,Urine Normal (Normal); WBC,Urine 0-3 per hpf (0-3)
[2021-12-14] MEDS: rOPINIRole 0.25 MG TABLET PO SCH (20:02)
[2021-12-14] MEDS: Pregabalin 25 MG CAPSULE PO SCH (20:02)
[2021-12-14] MEDS: Insulin DETEMIR 100 UNIT/ML X5UNITS SUBQ SCH (20:07)
[2021-12-15 02:58] LABS: Mean Corpuscular Volume 88.6 fL (83.0-100.0)
[2021-12-15 03:00] LABS: Hematocrit 24.8 % (37.5-50.1); Hemoglobin 8.5 g/dL (12.9-16.9); Immature Platelets 8.4 % (1.1-6.1); Mean Corpuscular HGB Conc 34.3 g/dL (31.6-35.5); Mean Corpuscular Hemoglobin 30.4 pg (28.0-33.3); Mean Platelet Volume 13.4 fL (9.4-12.4); Red Blood Count 2.8 M/mcL (4.19-5.50); Red Cell Distribution Width 13.4 % (11.5-14.5)
[2021-12-15 03:14] LABS: Calcium 8.9 mg/dL (8.6-10.3); Potassium 4.4 mEq/L (3.5-5.1)
[2021-12-15 05:00] VITALS: O2SAT 99
[2021-12-15] MEDS: Insulin LISPRO 300 UNITS/3 ML VIAL SUBQ SCH ×3 (05:34→12:09)
[2021-12-15] MEDS: Multivit/Ca/Min/Fe/FA 1 TAB TABLET PO SCH (08:53)
[2021-12-15] MEDS: Pregabalin 25 MG CAPSULE PO SCH (08:53)
[2021-12-15] MEDS: Cholecalciferol (D-3) 1,000 UNIT (25MCG) TABLET PO SCH (08:53)
[2021-12-15] MEDS: Aspirin Enteric Coated 81 MG Tablet PO SCH (08:54)
[2021-12-15] MEDS: Lactulose Oral Soln 20 GM/30 ML UDC PO SCH (08:55)
[2021-12-15] MEDS: Insulin DETEMIR 100 UNIT/ML X5UNITS SUBQ SCH (08:56)
[2021-12-15 11:41] VITALS: BP 123/78; PULSE 70; TEMP 97.4
== END 2021-12-15 13:30 | disposition home or self-care (01) ==
LOC: 2NENU 11:56 → EMEROOARM 11:56 → SUATTDRO 16:06 → 2NENU 17:07
PROVIDERS: ADMIT Pharmacist; ATTEND Internal Medicine

== ENCOUNTER 2021-12-24 08:10 | Inpatient (IN) ==
[2021-12-24 09:29] LABS: INR 1.9; Prothrombin Time 21.6 Seconds (9.4-12.1)
[2021-12-24 09:51] LABS: Albumin 3.7 g/dL (3.5-5.7); Albumin/Globulin Ratio 1.3 (1.1-2.2); Bilirubin,Indirect 1.9 mg/dL (0.0-1.0); Bilirubin,Total 2.9 mg/dL (0.3-1.0); Calcium 9.7 mg/dL (8.6-10.3); Globulin 2.9 g/dL (2.4-3.5); Magnesium 3.4 mg/dL (1.6-2.6); Potassium 5.9 mEq/L (3.5-5.1); Total Protein 6.6 g/dL (6.4-8.9); Troponin I 0.03 ng/mL (< 0.04)
[2021-12-24] MEDS ORDERED: Ondansetron 4 MG/2 ML VIAL IVP ONE (09:52)
[2021-12-24 10:11] LABS: Basophils # 0.1 K/mcL (0.0-0.2); Eosinophils # 0.4 K/mcL (0.0-0.6); Eosinophils % 3.6 %; Hematocrit 31.8 % (37.5-50.1); Hemoglobin 10.8 g/dL (12.9-16.9); Lymphocytes # 0.8 K/mcL (0.6-4.6); Lymphocytes % 8.1 %; Mean Corpuscular Hemoglobin 30.4 pg (28.0-33.3); Mean Corpuscular Volume 89.6 fL (83.0-100.0); Mean Platelet Volume 12.7 fL (9.4-12.4); Monocytes # 0.9 K/mcL (0.0-1.3); Monocytes % 9.2 %; Neutrophils # 7.4 K/mcL (1.6-8.9); Platelet Count 119 K/mcL (140-400); Red Blood Count 3.55 M/mcL (4.19-5.50); Red Cell Distribution Width 14.7 % (11.5-14.5); Segmented Neutrophils % 77.1 %; White Blood Count 9.6 K/mcL (4.3-11.1)
[2021-12-24] MEDS ORDERED: Metoclopramide 10 MG/2 ML VIAL IVP ONE (10:41)
[2021-12-24] MEDS ORDERED: Calcium Gluconate 1gm/50mL 1 GM/50 ML BAG IVPB ONE (10:41)
[2021-12-24] MEDS: SODIUM ZIRCONIUM CYCLOSILICATE 5 GM POWD.PACK PO ONE (11:55)
[2021-12-24] MEDS ORDERED: Insulin Human Regular 10 UNIT in 0.9 % Sodium Chloride 10 ML IV ONE (12:21)
[2021-12-24] MEDS ORDERED: Naloxone 0.4 MG/ML INJ IVP PRN (13:33)
[2021-12-24] MEDS ORDERED: Melatonin 3 MG TABLET PO PRN (13:33)
[2021-12-24] MEDS ORDERED: Ondansetron ODT 4 MG TAB.RAPDIS SL PRN (13:33)
[2021-12-24] MEDS ORDERED: *HR* Dextrose 50 % in Water (Syg) 50 ML SYRINGE IVP PRN (14:41)
[2021-12-24] MEDS ORDERED: D5% in Water 1,000 ML IVC PRN (14:41)
[2021-12-24] MEDS ORDERED: Dextrose Gel 15 GM/37.5 ML TUBE PO PRN ×2 (14:41)
[2021-12-24] MEDS ORDERED: Pregabalin 25 MG CAPSULE PO ONE (14:48)
[2021-12-24 15:56] LABS: RBC,Peritoneal Fluid < 2000 RBC/mcL
[2021-12-24 15:57] LABS: Appearance of Peritoneal Fl HAZY (Clear)
[2021-12-24] MEDS: Lactulose Oral Soln 20 GM/30 ML UDC PO SCH ×2 (16:06→20:04)
[2021-12-24] MEDS: Albumin 25% 25gram/100mL 25 GM/100 ML IV.SOLN IVPB SCH ×2 (16:06→23:07)
[2021-12-24] MEDS ORDERED: Insulin LISPRO 300 UNITS/3 ML VIAL SUBQ SCH ×3 (16:30→21:00)
[2021-12-24 16:32] LABS: Glucose,Peritoneal Fluid 576 mg/dL (No Ref Range); LDH,Peritoneal Fluid 32 Units/L (No Ref Range); Total Protein,Peritoneal Fluid < 2.0 g/dL
[2021-12-24] MEDS ORDERED: cefTRIAXone 2,000 MG in 0.9 % Sodium Chloride 20 ML IVP SCH (18:00)
[2021-12-24] MEDS: Pregabalin 25 MG CAPSULE PO SCH (20:04)
[2021-12-24] MEDS ORDERED: Insulin DETEMIR 100 UNIT/ML X5UNITS SUBQ SCH (21:00)
[2021-12-24 23:30] LABS: Calcium 10.1 mg/dL (8.6-10.3); Potassium 5.3 mEq/L (3.5-5.1)
[2021-12-25] MEDS: Pregabalin 25 MG CAPSULE PO SCH (08:59)
[2021-12-25] MEDS ORDERED: cefTRIAXone 2,000 MG in 0.9 % Sodium Chloride 20 ML IVP SCH (09:00)
[2021-12-25] MEDS: Albumin 25% 25gram/100mL 25 GM/100 ML IV.SOLN IVPB SCH (09:20)
[2021-12-25] MEDS: Lactulose Oral Soln 20 GM/30 ML UDC PO SCH ×3 (09:21→13:56)
[2021-12-25] MEDS: Insulin LISPRO 300 UNITS/3 ML VIAL SUBQ SCH ×2 (09:25→12:15)
[2021-12-25] MEDS ORDERED: Lactulose 200 GM, Sodium Chloride IRRigation 700 ML RC ONE (09:57)
[2021-12-25 10:05] LABS: Red Cell Distribution Width 14.6 % (11.5-14.5)
[2021-12-25 10:07] LABS: Basophils # 0.1 K/mcL (0.0-0.2); Basophils % 0.7 %; Eosinophils # 0.3 K/mcL (0.0-0.6); Eosinophils % 2.8 %; Hematocrit 25.8 % (37.5-50.1); Hemoglobin 9.1 g/dL (12.9-16.9); Immature Granulocytes % 0.7 % (0-4); Immature Platelets 6.8 % (1.1-6.1); Lymphocytes % 10.9 %; Mean Corpuscular HGB Conc 35.3 g/dL (31.6-35.5); Mean Corpuscular Hemoglobin 30.5 pg (28.0-33.3); Mean Corpuscular Volume 86.6 fL (83.0-100.0); Mean Platelet Volume 12.8 fL (9.4-12.4); Monocytes # 0.9 K/mcL (0.0-1.3); Red Blood Count 2.98 M/mcL (4.19-5.50); Segmented Neutrophils % 74.9 %; White Blood Count 9.1 K/mcL (4.3-11.1)
[2021-12-25 10:14] LABS: INR 2.2; Prothrombin Time 24.5 Seconds (9.4-12.1)
[2021-12-25 10:17] LABS: Activated Partial Thrombo Time 28.9 Seconds (26.0-36.0)
[2021-12-25 10:35] LABS: Neutrophils # 6.8 K/mcL (1.6-8.9); Platelet Count 83 K/mcL (140-400)
[2021-12-25 10:53] LABS: Albumin 3.7 g/dL (3.5-5.7); Albumin/Globulin Ratio 1.7 (1.1-2.2); Bilirubin,Total 4.4 mg/dL (0.3-1.0); Calcium 9.7 mg/dL (8.6-10.3); Globulin 2.2 g/dL (2.4-3.5); Magnesium 3.1 mg/dL (1.6-2.6); Phosphorous 4.5 mg/dL (2.7-4.5); Potassium 5.3 mEq/L (3.5-5.1); Total Protein 5.9 g/dL (6.4-8.9)
[2021-12-25] MEDS ORDERED: SODIUM ZIRCONIUM CYCLOSILICATE 5 GM POWD.PACK PO ONE (11:04)
[2021-12-25] MEDS ORDERED: 0.9 % Sodium Chloride 1,000 ML IVC SCH (13:30)
[2021-12-25] MEDS: SODIUM ZIRCONIUM CYCLOSILICATE 5 GM POWD.PACK PO ONE (13:52)
[2021-12-25 14:04] LABS: Thyroid Stimulating Hormone 2.743 mcIU/mL (0.340-5.600)
[2021-12-25] MEDS ORDERED: Pregabalin 25 MG CAPSULE PO ONE (14:30)
[2021-12-25] MEDS ORDERED: Lactulose Oral Soln 20 GM/30 ML UDC PO SCH (15:00)
[2021-12-25 15:30] LABS: Calcium 10.2 mg/dL (8.6-10.3)
[2021-12-25 17:25] VITALS: BP 136/74; PULSE 79; TEMP 98.3; O2SAT 97
[2021-12-25] MEDS ORDERED: rOPINIRole 0.25 MG TABLET PO SCH (21:00)
[2021-12-27 13:04] LABS: Fluid Source for Albumin PERITONEAL
== END 2021-12-25 19:05 | disposition short-term general hospital (02) | DRG 279 ==
LOC: EMEROOARM 08:10 → 2NENU 08:10 → SUATTDRO 12:47 → 2NENU 13:11
PROVIDERS: ADMIT Internal Medicine; ATTEND Internal Medicine